=== PATIENT | female | born 1965 | race Caucasian/White ===

== ENCOUNTER 2021-05-30 12:05 | Emergency (ER) | payer SELFPAY ==
[~2021-05-30] VITALS: Ht 160 cm; Wt 61.2 kg
[2021-05-30 12:05] VITALS: BP_SYST 139
--- NOTE | 2021-05-30 12:05 | NUR ---
BROUGHT BACK TO TRIAGE TENT AND TRIAGED. AWAITING ER BED AVAILABILITY
--- NOTE | 2021-05-30 12:11 | NUR ---
PT STATES THAT SHE HAS HAS RIGHT RIB/CHEST PAIN FOR OVER ONE MONTH, SHE HAS HAD FLU/COLD SYMPTOMS FOR LAST 2 WEEKS WHICH HAS MADE THE RIB PAIN WORSE DUE TO COUGHING. PT STATES SHE IS NOT VACCINATED FOR COVID AND DOES NOT WANT IT. PT STATES SHE HAS NOT BEEN TESTED FOR COVID EITHER.
--- NOTE | 2021-05-30 12:40 | NUR ---
Dr Clark evaluating patient in the tent
[2021-05-30] MEDS ORDERED: KETOROLAC TROMETHAMINE 30 MG VIAL IM ONE (14:30)
--- NOTE | 2021-05-30 15:10 | NUR ---
Pt A&Ox4, VSS, respirations even and unlabored
[2021-05-30 15:12] LABS: HEMATOCRIT 27.8 % (36-48); HEMOGLOBIN 9.6 g/dL (12.0-16.0); LYMPHOCYTES # (AUTO) 0.8 K/uL (1.0-5.5); LYMPHOCYTES % (AUTO) 18.9 % (20.5-51.5); MEAN CORPUSCULAR HEMOGLOBIN 31 pg (27-31); MEAN CORPUSCULAR HGB CONC 34 % (32-36); MEAN CORPUSCULAR VOLUME 91 fL (79.0-98.0); MONOCYTES # (AUTO) 0.6 K/uL (0.0-1.0); MONOCYTES % (AUTO) 13.9 % (1.7-9.3); NEUTROPHILS # (AUTO) 2.6 K/uL (1.8-7.7); NEUTROPHILS % (AUTO) 65.2 % (40.0-70.0); PLATELET COUNT (AUTO) 176 K/uL (130-430); RED BLOOD CELL COUNT(AUTO) 3.08 MIL/uL (4.2-6.2); RED CELL DISTRIBUTION WIDTH 15.3 % (9.0-15.0)
[2021-05-30 15:59] LABS: CALCIUM 11.2 mg/dL (8.4-11.0); CREATININE 1.09 mg/dL (0.55-1.30); POTASSIUM 3.9 mmol/L (3.5-5.1)
[2021-05-30 16:05] LABS: ALBUMIN 2.8 g/dL (3.4-4.8); TOTAL BILIRUBIN 0.1 mg/dL (0.0-1.0)
[2021-05-30] MEDS ORDERED: ACET325T53 PO (16:25)
[2021-05-30] MEDS ORDERED: GUAI100S14 PO (16:25)
[2021-05-30 17:46] VITALS: BP_SYST 139
--- NOTE | 2021-05-30 17:47 | NUR ---
Patient given written and verbal discharge instructions and verbalizes understanding. ER MD discussed with patient the results and treatment provided. Patient in stable condition. ID arm band removed. Rx of Robitussin and Acetaminophen given. Patient educated on pain management and to follow up with PMD. Pain Scale 2/10. Opportunity for questions provided and answered. Medication side effect fact sheet provided.
== END 2021-05-30 17:47 | disposition home or self-care (01) ==
LOC: SED 12:05
DX: R07.89 Other chest pain (principal); R05.9 Cough, unspecified; Z20.822 Contact with and (suspected) exposure to COVID-19
CPT/HCPCS: 36415; 71045; 80053; 83735; 84484; 85025; 93005; 96372; 99285; J1885

== ENCOUNTER 2021-08-04 15:39 | Inpatient (IN) | payer MEDICAID, SELFPAY ==
[~2021-08-04] VITALS: Ht 160 cm; Wt 55.3 kg
[~2021-08-04 15:39] MED LIST: ACET325T53 PO; GUAI100S14 PO
[2021-08-04 15:46] VITALS: BP_SYST 166
[2021-08-04] MEDS ORDERED: NACL 0.9% 1,000 ML IV ONE (16:15)
[2021-08-04] MEDS ORDERED: KETOROLAC TROMETHAMINE 30 MG VIAL IVP ONE (16:15)
[2021-08-04 16:32] LABS: BILIRUBIN,URINE NEGATIVE (NEGATIVE); BLOOD, URINE 1+ (NEGATIVE); CLARITY/URINE CLEAR (CLEAR); COLOR,URINE YELLOW (YELLOW); GLUCOSE,URINE NEGATIVE (NEGATIVE); KETONES,URINE NEGATIVE (NEGATIVE); LEUKOCYTE ESTERASE ,URINE NEGATIVE (NEGATIVE); NITRITE, URINE NEGATIVE (NEGATIVE); PROTEIN URINE 2+ (NEGATIVE); UROBILINOGEN,URINE 0.2 (0.2-1.0)
[2021-08-04 16:56] LABS: WBC,URINE 0-3 /HPF (0-3)
[2021-08-04 16:57] LABS: BACTERIA,URINE RARE /HPF (None Seen); FINE GRANULAR CASTS,URINE 0-10 /LPF (None Seen)
[2021-08-04 16:59] LABS: BASOPHILS % (AUTO) 0.6 % (0.0-2.0); EOSINOPHILS # (AUTO) 0.1 K/uL (0.0-0.4); EOSINOPHILS % (AUTO) 1.8 % (0.0-4.0); LYMPHOCYTES # (AUTO) 1.6 K/uL (1.0-5.5); LYMPHOCYTES % (AUTO) 28.9 % (20.5-51.5); MEAN CORPUSCULAR HEMOGLOBIN 30 pg (27-31); MEAN CORPUSCULAR HGB CONC 34 % (32-36); MEAN CORPUSCULAR VOLUME 89 fL (79.0-98.0); MONOCYTES # (AUTO) 0.6 K/uL (0.0-1.0); MONOCYTES % (AUTO) 10.6 % (1.7-9.3); NEUTROPHILS # (AUTO) 3.1 K/uL (1.8-7.7); NEUTROPHILS % (AUTO) 58.1 % (40.0-70.0); PLATELET COUNT (AUTO) 200 K/uL (130-430); RED BLOOD CELL COUNT(AUTO) 2.03 MIL/uL (4.2-6.2); RED CELL DISTRIBUTION WIDTH 15.3 % (9.0-15.0); WHITE BLOOD COUNT (AUTO) 5.4 K/uL (4.8-10.8)
[2021-08-04 17:04] LABS: HEMOGLOBIN 6.2 g/dL (12.0-16.0)
[2021-08-04 17:06] LABS: CREATININE 5.6 mg/dL (0.55-1.30); POTASSIUM 3.9 mmol/L (3.5-5.1)
[2021-08-04 17:11] LABS: CALCIUM 12.9 mg/dL (8.4-11.0)
[2021-08-04 17:12] LABS: ALBUMIN 2.6 g/dL (3.4-4.8); TOTAL BILIRUBIN 0.1 mg/dL (0.0-1.0)
[2021-08-04] MEDS ORDERED: ACETAMINOPHEN 325 MG TABLET PO PRN (18:15)
[2021-08-04] MEDS ORDERED: DOCUSATE SODIUM 100 MG CAPSULE PO PRN (18:15)
[2021-08-04] MEDS ORDERED: LORazepam 2 MG/ML VIAL IVP ONE (18:15)
[2021-08-04] MEDS ORDERED: HYDROcodone/ACETAMIN 5-325 MG TAB (NORCO/ VICODIN) PO PRN (18:15)
[2021-08-04] MEDS ORDERED: LORazepam 2 MG/ML VIAL ONE (18:19)
[2021-08-04 18:20] LABS: INR 1.1 (0.8-1.2); PROTHROMBIN TIME 10.8 SECS (9.5-12.5)
[2021-08-04] MEDS: NACL 0.9% 1,000 ML IV SCH (18:57)
[2021-08-04 19:22] LABS: BARBITURATE, URINE NEGATIVE (NEG <=200); BENZODIAZEPINE, URINE NEGATIVE (NEG <=150); CANNABINOID, URINE NEGATIVE (NEG <=50); COCAINE, URINE NEGATIVE (NEG <=150); METHAMPHETAMINES SCREEN,URINE NEGATIVE (NEG <=500); OPIATE, URINE NEGATIVE (NEG <=100); PHENCYCLIDINE SCREEN,URINE NEGATIVE (NEG <=25); UR TRICYCLIC ANTIDEPRESSANTS NEGATIVE (NEG <=300); URINE AMPHETAMINE NEGATIVE (NEG <=500); URINE METHADONE NEGATIVE (NEG <=200); URINE OXYCODONE SCREEN NEGATIVE (NEG <=100); URINE PROPOXYPHENE SCREEN NEGATIVE (NEG <=300)
[2021-08-04] MEDS: MORPHINE 2 MG/ML INJ. SYRINGE IVP ONE (19:30)
[2021-08-04] MEDS ORDERED: PAMIDRONATE DISODIUM 60 MG in NS 250 ML IV ONE (20:00)
[2021-08-04] MEDS: CALCITONIN SALMON,SYNTHETIC 200 UNITS/ML VIAL SUBCUT SCH (21:00)
[2021-08-04 23:42] VITALS: BP_SYST 141
[2021-08-05] MEDS: MORPHINE 2 MG/ML INJ. SYRINGE IVP ONE (00:49)
[2021-08-05] MEDS: ONDANSETRON HCL 4 MG/2 ML VIAL IVP PRN (00:52)
[2021-08-05 02:23] VITALS: BP_SYST 123
[2021-08-05] MEDS: NACL 0.9% 1,000 ML IV SCH ×3 (06:10→17:47)
[2021-08-05 08:06] VITALS: BP_SYST 125
[2021-08-05] MEDS: CALCITONIN SALMON,SYNTHETIC 200 UNITS/ML VIAL SUBCUT SCH ×3 (09:41→21:00)
[2021-08-05 09:59] LABS: BASOPHILS % (AUTO) 0.7 % (0.0-2.0); EOSINOPHILS # (AUTO) 0.1 K/uL (0.0-0.4); EOSINOPHILS % (AUTO) 1.7 % (0.0-4.0); HEMATOCRIT 22.8 % (36-48); HEMOGLOBIN 7.8 g/dL (12.0-16.0); LYMPHOCYTES # (AUTO) 1.2 K/uL (1.0-5.5); LYMPHOCYTES % (AUTO) 27.4 % (20.5-51.5); MEAN CORPUSCULAR HEMOGLOBIN 31 pg (27-31); MEAN CORPUSCULAR HGB CONC 34 % (32-36); MEAN CORPUSCULAR VOLUME 90 fL (79.0-98.0); MONOCYTES # (AUTO) 0.5 K/uL (0.0-1.0); MONOCYTES % (AUTO) 10.8 % (1.7-9.3); NEUTROPHILS # (AUTO) 2.7 K/uL (1.8-7.7); NEUTROPHILS % (AUTO) 59.4 % (40.0-70.0); PLATELET COUNT (AUTO) 155 K/uL (130-430); RED BLOOD CELL COUNT(AUTO) 2.54 MIL/uL (4.2-6.2); RED CELL DISTRIBUTION WIDTH 15.2 % (9.0-15.0); WHITE BLOOD COUNT (AUTO) 4.5 K/uL (4.8-10.8)
[2021-08-05 10:07] LABS: ALBUMIN 2.2 g/dL (3.4-4.8); CALCIUM 12.2 mg/dL (8.4-11.0); CREATININE 5.27 mg/dL (0.55-1.30); PHOSPHORUS 5.4 mg/dL (2.7-4.5); THYROID STIMULATING HORMONE 7.57 uIu/mL (0.36-3.74); TOTAL BILIRUBIN 0.5 mg/dL (0.0-1.0)
[2021-08-05 12:00] VITALS: BP_SYST 122
[2021-08-05] MEDS: DEXAMETHASONE SOD PHOSPHATE 10 MG/ML VIAL IV SCH ×2 (12:18→17:43)
[2021-08-05] MEDS ORDERED: PAMIDRONATE DISODIUM 60 MG in NS 250 ML IV ONE (13:00)
[2021-08-05 14:07] LABS: TOTAL IRON BIND. CAPACITY 217 ug/dL (250-450)
[2021-08-05 16:00] VITALS: BP_SYST 132
[2021-08-05 20:18] VITALS: BP_SYST 123
[2021-08-05] MEDS: MORPHINE 2 MG/ML INJ. SYRINGE IVP PRN (22:28)
[2021-08-06] VITALS (7 sets, daily range): BP systolic 116–141
[2021-08-06] MEDS: DEXAMETHASONE SOD PHOSPHATE 10 MG/ML VIAL IV SCH ×4 (02:57→18:18)
[2021-08-06 07:06] LABS: FOLATE (FOLIC ACID) 5.8 ng/mL (>3.0)
[2021-08-06 08:08] LABS: BASOPHILS % (AUTO) 0.3 % (0.0-2.0); EOSINOPHILS % (AUTO) 0.1 % (0.0-4.0); HEMOGLOBIN 7.1 g/dL (12.0-16.0); LYMPHOCYTES # (AUTO) 0.8 K/uL (1.0-5.5); LYMPHOCYTES % (AUTO) 12.2 % (20.5-51.5); MEAN CORPUSCULAR HEMOGLOBIN 31 pg (27-31); MEAN CORPUSCULAR HGB CONC 34 % (32-36); MEAN CORPUSCULAR VOLUME 90 fL (79.0-98.0); MONOCYTES # (AUTO) 0.3 K/uL (0.0-1.0); MONOCYTES % (AUTO) 5.3 % (1.7-9.3); NEUTROPHILS # (AUTO) 5.3 K/uL (1.8-7.7); NEUTROPHILS % (AUTO) 82.1 % (40.0-70.0); PLATELET COUNT (AUTO) 156 K/uL (130-430); RED BLOOD CELL COUNT(AUTO) 2.33 MIL/uL (4.2-6.2); RED CELL DISTRIBUTION WIDTH 15.6 % (9.0-15.0); WHITE BLOOD COUNT (AUTO) 6.4 K/uL (4.8-10.8)
[2021-08-06 08:38] LABS: ALBUMIN 2.1 g/dL (3.4-4.8); CALCIUM 10.3 mg/dL (8.4-11.0); CREATININE 4.92 mg/dL (0.55-1.30); POTASSIUM 4.5 mmol/L (3.5-5.1); TOTAL BILIRUBIN 0.2 mg/dL (0.0-1.0)
[2021-08-06 09:16] LABS: HEMATOCRIT 20.9 % (36-48)
[2021-08-06] MEDS: MORPHINE 2 MG/ML INJ. SYRINGE IVP PRN ×3 (09:56→18:24)
[2021-08-06] MEDS: CALCITONIN SALMON,SYNTHETIC 200 UNITS/ML VIAL SUBCUT SCH ×2 (09:56→20:53)
[2021-08-06] MEDS ORDERED: DOCUSATE SODIUM 250 MG CAPSULE PO ONE (10:00)
[2021-08-06] MEDS ORDERED: traMADol HCL HCL 50 MG TABLET (ULTRAM) PO ONE (10:00)
[2021-08-06 15:07] LABS: ALBUMIN 3.1 g/dL (2.9-4.4); ALPHA-1-GLOBULIN 0.3 g/dL (0.0-0.4)
[2021-08-06] MEDS: NACL 0.9% 1,000 ML IV SCH ×2 (18:24→20:49)
[2021-08-06] MEDS: traMADol HCL HCL 50 MG TABLET (ULTRAM) PO SCH (20:52)
[2021-08-06] MEDS: DOCUSATE SODIUM 250 MG CAPSULE PO SCH (20:52)
[2021-08-07] VITALS: BP_SYST 124
[2021-08-07 00:30] LABS: TPROTEIN U,24HR 2931.3 mg/24HR (0-130)
[2021-08-07] MEDS: DEXAMETHASONE SOD PHOSPHATE 10 MG/ML VIAL IV SCH ×4 (00:52→18:51)
[2021-08-07] MEDS: NACL 0.9% 1,000 ML IV SCH ×2 (05:32→15:53)
[2021-08-07] MEDS: MORPHINE 2 MG/ML INJ. SYRINGE IVP PRN ×3 (05:33→15:52)
[2021-08-07 08:00] VITALS: BP_SYST 128
[2021-08-07] MEDS: DOCUSATE SODIUM 250 MG CAPSULE PO SCH ×2 (09:21→21:27)
[2021-08-07] MEDS: ONDANSETRON HCL 4 MG/2 ML VIAL IVP PRN ×2 (09:21→15:05)
[2021-08-07] MEDS: traMADol HCL HCL 50 MG TABLET (ULTRAM) PO SCH ×2 (09:23→21:27)
[2021-08-07] MEDS: CALCITONIN SALMON,SYNTHETIC 200 UNITS/ML VIAL SUBCUT SCH ×2 (09:24→21:26)
[2021-08-07 09:36] LABS: RED BLOOD CELL COUNT(AUTO) 2.43 MIL/uL (4.2-6.2)
[2021-08-07 09:45] LABS: BASOPHILS % (AUTO) 0.3 % (0.0-2.0); HEMOGLOBIN 7.4 g/dL (12.0-16.0); LYMPHOCYTES # (AUTO) 0.6 K/uL (1.0-5.5); LYMPHOCYTES % (AUTO) 7.5 % (20.5-51.5); MEAN CORPUSCULAR HEMOGLOBIN 31 pg (27-31); MEAN CORPUSCULAR HGB CONC 34 % (32-36); MEAN CORPUSCULAR VOLUME 90 fL (79.0-98.0); MONOCYTES # (AUTO) 0.3 K/uL (0.0-1.0); MONOCYTES % (AUTO) 3.6 % (1.7-9.3); NEUTROPHILS % (AUTO) 88.6 % (40.0-70.0); PLATELET COUNT (AUTO) 154 K/uL (130-430); RED CELL DISTRIBUTION WIDTH 15.5 % (9.0-15.0); WHITE BLOOD COUNT (AUTO) 7.9 K/uL (4.8-10.8)
[2021-08-07 09:49] LABS: CREATININE 4.8 mg/dL (0.55-1.30); POTASSIUM 4.6 mmol/L (3.5-5.1)
[2021-08-07 12:00] VITALS: BP_SYST 129
[2021-08-07 16:00] VITALS: BP_SYST 131
[2021-08-07] MEDS ORDERED: PANTOPRAZOLE SODIUM 40 MG TAB PO ONE (18:00)
[2021-08-08] VITALS: BP_SYST 111
[2021-08-08] MEDS: DEXAMETHASONE SOD PHOSPHATE 10 MG/ML VIAL IV SCH ×5 (00:25→23:46)
[2021-08-08] MEDS: NACL 0.9% 1,000 ML IV SCH ×3 (02:50→23:45)
[2021-08-08 05:50] LABS: BASOPHILS % (AUTO) 0.1 % (0.0-2.0); HEMOGLOBIN 7.1 g/dL (12.0-16.0); LYMPHOCYTES # (AUTO) 0.6 K/uL (1.0-5.5); LYMPHOCYTES % (AUTO) 8.4 % (20.5-51.5); MEAN CORPUSCULAR HEMOGLOBIN 31 pg (27-31); MEAN CORPUSCULAR HGB CONC 34 % (32-36); MEAN CORPUSCULAR VOLUME 92 fL (79.0-98.0); MONOCYTES # (AUTO) 0.2 K/uL (0.0-1.0); MONOCYTES % (AUTO) 3.4 % (1.7-9.3); NEUTROPHILS % (AUTO) 88.1 % (40.0-70.0); PLATELET COUNT (AUTO) 153 K/uL (130-430); RED CELL DISTRIBUTION WIDTH 15.9 % (9.0-15.0); WHITE BLOOD COUNT (AUTO) 6.8 K/uL (4.8-10.8)
[2021-08-08 06:29] LABS: HEMATOCRIT 21.1 % (36-48)
[2021-08-08 07:03] LABS: CALCIUM 8.4 mg/dL (8.4-11.0); CREATININE 4.26 mg/dL (0.55-1.30); POTASSIUM 4.7 mmol/L (3.5-5.1)
[2021-08-08 08:00] VITALS: BP_SYST 132
[2021-08-08] MEDS: traMADol HCL HCL 50 MG TABLET (ULTRAM) PO SCH ×2 (08:28→20:56)
[2021-08-08] MEDS: PANTOPRAZOLE SODIUM 40 MG TAB PO SCH (08:28)
[2021-08-08] MEDS: DOCUSATE SODIUM 250 MG CAPSULE PO SCH ×2 (08:28→20:55)
[2021-08-08] MEDS: CALCITONIN SALMON,SYNTHETIC 200 UNITS/ML VIAL SUBCUT SCH (08:29)
[2021-08-08 09:33] LABS: TOTAL BILIRUBIN 0.1 mg/dL (0.0-1.0)
[2021-08-08 12:27] VITALS: BP_SYST 123
[2021-08-08 16:24] VITALS: BP_SYST 130
[2021-08-08] MEDS: CALCIUM CARBONATE/VITAMIN D3 1 TAB TABLET PO SCH (20:55)
[2021-08-08] MEDS ORDERED: CALCIUM 600/VIT D PO SCH (21:00)
[2021-08-09] VITALS: BP_SYST 129
[2021-08-09] MEDS: DEXAMETHASONE SOD PHOSPHATE 10 MG/ML VIAL IV SCH (05:39)
[2021-08-09 08:00] VITALS: BP_SYST 140
[2021-08-09] MEDS: traMADol HCL HCL 50 MG TABLET (ULTRAM) PO SCH (08:19)
[2021-08-09] MEDS: DOCUSATE SODIUM 250 MG CAPSULE PO SCH (08:19)
[2021-08-09] MEDS: PANTOPRAZOLE SODIUM 40 MG TAB PO SCH (08:19)
[2021-08-09] MEDS: NACL 0.9% 1,000 ML IV SCH (08:20)
[2021-08-09] MEDS: CALCIUM CARBONATE/VITAMIN D3 1 TAB TABLET PO SCH (08:20)
[2021-08-09] MEDS ORDERED: TRAM50TA2 PO (09:10)
[2021-08-09 09:30] LABS: BASOPHILS # (AUTO) 0.1 K/uL (0.0-0.2); BASOPHILS % (AUTO) 1.6 % (0.0-2.0); EOSINOPHILS % (AUTO) 0.2 % (0.0-4.0); HEMOGLOBIN 7.3 g/dL (12.0-16.0); LYMPHOCYTES # (AUTO) 0.3 K/uL (1.0-5.5); MEAN CORPUSCULAR HEMOGLOBIN 31 pg (27-31); MEAN CORPUSCULAR HGB CONC 34 % (32-36); MEAN CORPUSCULAR VOLUME 90 fL (79.0-98.0); MONOCYTES # (AUTO) 0.3 K/uL (0.0-1.0); MONOCYTES % (AUTO) 5.5 % (1.7-9.3); NEUTROPHILS % (AUTO) 86.7 % (40.0-70.0); PLATELET COUNT (AUTO) 149 K/uL (130-430); RED BLOOD CELL COUNT(AUTO) 2.39 MIL/uL (4.2-6.2); RED CELL DISTRIBUTION WIDTH 15.5 % (9.0-15.0); WHITE BLOOD COUNT (AUTO) 5.8 K/uL (4.8-10.8)
[2021-08-09 09:35] LABS: HEMATOCRIT 21.6 % (36-48)
[2021-08-09 09:41] LABS: ALBUMIN 2.1 g/dL (3.4-4.8); CALCIUM 7.7 mg/dL (8.4-11.0); CREATININE 3.68 mg/dL (0.55-1.30); POTASSIUM 4.4 mmol/L (3.5-5.1); TOTAL BILIRUBIN 0.1 mg/dL (0.0-1.0)
[2021-08-09 11:12] VITALS: BP_SYST 140
[2021-08-09 12:00] VITALS: BP_SYST 132
[2021-08-09 16:00] VITALS: BP_SYST 135
== END 2021-08-09 17:55 | disposition home or self-care (01) | DRG 691 ==
LOC: SED 15:39 → STU 18:08 → SMU 08-07 13:21
PROVIDERS: ADMIT Family Medicine; ATTEND Family Medicine
PROC: 30233N1 Transfusion of Nonautologous Red Blood Cells into Peripheral Vein, Percutaneous Approach (ICD-10-PCS; principal; 2021-08-04)
DX: C90.00 Multiple myeloma not having achieved remission (principal); N17.0 Acute kidney failure with tubular necrosis; E43 Unspecified severe protein-calorie malnutrition; E87.1 Hypo-osmolality and hyponatremia; E83.39 Other disorders of phosphorus metabolism; E11.65 Type 2 diabetes mellitus with hyperglycemia; D64.9 Anemia, unspecified; Z20.822 Contact with and (suspected) exposure to COVID-19; E78.5 Hyperlipidemia, unspecified; E83.52 Hypercalcemia; Z98.891 History of uterine scar from previous surgery; Z68.21 Body mass index [BMI] 21.0-21.9, adult
CPT/HCPCS: 36415; 36430; 71045; 72131; 72146; 72148; 76376; 80048; 80053; 80061; 80307; 81000; 82150; 82306; 82607; 82728; 82746; 82784; 83036; 83540; 83550; 83690; 83735; 83880; 84100; 84155; 84156; 84165; 84439; 84443; 85025; 85044; 85610-TC; 85730-TC; 86335; 86886; 86900; 86901; 86920; 93005; 96361; 96374; 96375; 97116-GP; 97163-GP; 97530-GP; 99291; G0378; J0630; J1100; J1885; J2060; J2270; J2405; J2430; J7050; P9021

== ENCOUNTER 2021-09-23 11:13 | Inpatient (IN) | payer MEDICAID ==
[~2021-09-23] VITALS: Ht 160 cm; Wt 46.3 kg
[~2021-09-23 11:13] MED LIST changes: -ACET325T53 PO; -GUAI100S14 PO; +TRAM50TA2 PO
[2021-09-23 11:43] VITALS: BP_SYST 112
[2021-09-23 12:14] LABS: BASOPHILS # (AUTO) 0.1 K/uL (0.0-0.2); BASOPHILS % (AUTO) 0.9 % (0.0-2.0); EOSINOPHILS # (AUTO) 0.1 K/uL (0.0-0.4); EOSINOPHILS % (AUTO) 1.8 % (0.0-4.0); HEMOGLOBIN 7.2 g/dL (12.0-16.0); LYMPHOCYTES # (AUTO) 1.7 K/uL (1.0-5.5); LYMPHOCYTES % (AUTO) 20.5 % (20.5-51.5); MEAN CORPUSCULAR HEMOGLOBIN 31 pg (27-31); MEAN CORPUSCULAR HGB CONC 34 % (32-36); MEAN CORPUSCULAR VOLUME 90 fL (79.0-98.0); MONOCYTES # (AUTO) 0.5 K/uL (0.0-1.0); MONOCYTES % (AUTO) 5.8 % (1.7-9.3); NEUTROPHILS # (AUTO) 5.9 K/uL (1.8-7.7); PLATELET COUNT (AUTO) 281 K/uL (130-430); RED BLOOD CELL COUNT(AUTO) 2.35 MIL/uL (4.2-6.2); RED CELL DISTRIBUTION WIDTH 14.6 % (9.0-15.0); WHITE BLOOD COUNT (AUTO) 8.3 K/uL (4.8-10.8)
[2021-09-23 12:18] LABS: HEMATOCRIT 21.2 % (36-48)
[2021-09-23] MEDS ORDERED: ONDA-8 TL (12:19)
[2021-09-23] MEDS ORDERED: TRAM50TA2 PO (12:19)
[2021-09-23 12:30] LABS: ANION GAP 9 (5-15); CHLORIDE 90 mmol/L (98-107); GLUCOSE 124 mg/dL (70-99); POTASSIUM 3.8 mmol/L (3.5-5.1); SODIUM SERUM 124 mmol/L (136-145); UREA NITROGEN, BLOOD 59 mg/dL (8-21)
[2021-09-23 12:35] LABS: INR 1.2 (0.8-1.2); PROTHROMBIN TIME 11.6 SECS (9.5-12.5)
[2021-09-23 12:45] LABS: ALANINE AMINOTRANSFERASE 10 U/L (12-78); ALBUMIN 2.1 g/dL (3.4-4.8); AMYLASE 193 U/L (0-100); ASPARTATE AMINOTRANSFERASE 15 U/L (10-37); LACTATE DEHYDROGENASE 165 U/L (81-234); LIPASE 513 U/L (73-393); TOTAL BILIRUBIN 0.2 mg/dL (0.0-1.0)
[2021-09-23 12:51] LABS: CALCIUM 16.3 mg/dL (8.4-11.0); GFR AFRICAN AMERICAN 9 mL/min (>90)
[2021-09-23 13:06] LABS: C-REACTIVE PROTEIN QUANT 10.3 mg/dL (0-0.5)
[2021-09-23] MEDS ORDERED: NACL 0.9% 2,000 ML IV ONE (13:15)
[2021-09-23] MEDS ORDERED: MORPHINE 2 MG/ML INJ. SYRINGE IVP ONE (14:00)
[2021-09-23 14:03] LABS: BILIRUBIN,URINE NEGATIVE (NEGATIVE); BLOOD, URINE 1+ (NEGATIVE); CLARITY/URINE SL CLOUDY (CLEAR); COLOR,URINE YELLOW (YELLOW); GLUCOSE,URINE NEGATIVE (NEGATIVE); KETONES,URINE NEGATIVE (NEGATIVE); LEUKOCYTE ESTERASE ,URINE 1+ (NEGATIVE); NITRITE, URINE NEGATIVE (NEGATIVE); PROTEIN URINE 2+ (NEGATIVE); UROBILINOGEN,URINE 0.2 (0.2-1.0)
[2021-09-23] MEDS ORDERED: MAGNESIUM SULFATE 50 ML IV PRN (14:15)
[2021-09-23] MEDS ORDERED: MUPIROCIN 2% TOPICAL OINTMENT 22 GM NS PRN (14:15)
[2021-09-23] MEDS ORDERED: DOCUSATE SODIUM 100 MG CAPSULE PO PRN (14:15)
[2021-09-23] MEDS ORDERED: NALOXONE HCL 0.4 MG/ML AMP (NARCAN) IVP PRN ×2 (14:15)
[2021-09-23] MEDS ORDERED: ACETAMINOPHEN 325 MG TABLET PO PRN ×2 (14:15→14:30)
[2021-09-23] MEDS ORDERED: LORazepam 2 MG/ML VIAL IVP PRN (14:15)
[2021-09-23] MEDS ORDERED: ZOLPIDEM TARTRATE 5 MG TABLET PO PRN (14:15)
[2021-09-23] MEDS ORDERED: POTASSIUM CHLORIDE 20 MEQ TAB.PRT.SR PO PRN (14:15)
[2021-09-23] MEDS ORDERED: ONDANSETRON HCL 4 MG/2 ML VIAL IVP PRN (14:15)
[2021-09-23 14:16] LABS: BACTERIA,URINE MODERATE /HPF (None Seen); MUCUS,URINE 1+ /LPF (None Seen); WBC,URINE 20-50 /HPF (0-3)
[2021-09-23 14:18] LABS: CALCIUM OXALATE CRYSTALS,UR 0-10 /HPF (None Seen)
[2021-09-23] MEDS ORDERED: PAMIDRONATE DISODIUM 30 MG in NS 500 ML IV ONE (14:45)
[2021-09-23] MEDS ORDERED: CALCITONIN SALMON,SYNTHETIC 200 UNITS/ML VIAL SUBCUT ONE (15:00)
[2021-09-23] MEDS ORDERED: DEXAMETHASONE SOD PHOSPHATE 10 MG/ML VIAL IVP ONE (15:00)
[2021-09-23] MEDS: NACL 0.9% 1,000 ML IV SCH ×2 (15:06→23:30)
[2021-09-23 16:50] VITALS: BP_SYST 139
[2021-09-23 16:59] LABS: TOTAL IRON BIND. CAPACITY 216 ug/dL (250-450)
[2021-09-23 17:17] VITALS: BP_SYST 139
[2021-09-23] MEDS: DEXAMETHASONE SOD PHOSPHATE 10 MG/ML VIAL IVP SCH (18:12)
[2021-09-23] MEDS: MORPHINE 2 MG/ML INJ. SYRINGE IVP PRN (19:00)
[2021-09-23 20:00] VITALS: BP_SYST 126
[2021-09-24] MEDS: DEXAMETHASONE SOD PHOSPHATE 10 MG/ML VIAL IVP SCH ×4 (00:06→17:04)
[2021-09-24] MEDS: CALCITONIN SALMON,SYNTHETIC 200 UNITS/ML VIAL SUBCUT SCH ×3 (00:07→22:18)
[2021-09-24] MEDS: MORPHINE 2 MG/ML INJ. SYRINGE IVP PRN ×5 (00:22→22:16)
[2021-09-24 00:50] VITALS: BP_SYST 116
[2021-09-24] MEDS: NACL 0.9% 1,000 ML IV SCH (01:26)
[2021-09-24 06:15] LABS: BASOPHILS % (AUTO) 0.2 % (0.0-2.0); EOSINOPHILS % (AUTO) 0.4 % (0.0-4.0); LYMPHOCYTES # (AUTO) 0.7 K/uL (1.0-5.5); LYMPHOCYTES % (AUTO) 11.1 % (20.5-51.5); MEAN CORPUSCULAR HEMOGLOBIN 31 pg (27-31); MEAN CORPUSCULAR HGB CONC 34 % (32-36); MEAN CORPUSCULAR VOLUME 91 fL (79.0-98.0); MONOCYTES # (AUTO) 0.2 K/uL (0.0-1.0); NEUTROPHILS # (AUTO) 5.2 K/uL (1.8-7.7); NEUTROPHILS % (AUTO) 85.3 % (40.0-70.0); PLATELET COUNT (AUTO) 170 K/uL (130-430); RED CELL DISTRIBUTION WIDTH 14.5 % (9.0-15.0); WHITE BLOOD COUNT (AUTO) 6.1 K/uL (4.8-10.8)
[2021-09-24 06:29] LABS: RED BLOOD CELL COUNT(AUTO) 1.81 MIL/uL (4.2-6.2)
[2021-09-24 06:30] LABS: HEMOGLOBIN 5.6 g/dL (12.0-16.0)
[2021-09-24 06:31] LABS: HEMATOCRIT 16.4 % (36-48)
[2021-09-24 06:36] LABS: CALCIUM 12.1 mg/dL (8.4-11.0); CREATININE 5.49 mg/dL (0.55-1.30)
[2021-09-24 08:00] VITALS: BP_SYST 106
[2021-09-24] MEDS: cefTRIAXone 1 GM in D5W 50 ML IV SCH (11:03)
[2021-09-24 11:35] VITALS: BP_SYST 113
[2021-09-24 12:02] LABS: TOTAL IRON BIND. CAPACITY 170 ug/dL (250-450)
[2021-09-24 13:55] VITALS: BP_SYST 100
[2021-09-24 16:00] VITALS: BP_SYST 112
[2021-09-24 20:00] VITALS: BP_SYST 110
[2021-09-25] VITALS (8 sets, daily range): BP systolic 115–198
[2021-09-25] MEDS: MORPHINE 2 MG/ML INJ. SYRINGE IVP PRN ×4 (03:11→17:32)
[2021-09-25] MEDS: DEXAMETHASONE SOD PHOSPHATE 10 MG/ML VIAL IVP SCH ×4 (03:16→17:31)
[2021-09-25] MEDS: NACL 0.9% 1,000 ML IV SCH ×2 (05:30→15:30)
[2021-09-25 07:06] LABS: FOLATE (FOLIC ACID) 7.4 ng/mL (>3.0)
[2021-09-25 07:58] LABS: CALCIUM 10.6 mg/dL (8.4-11.0); POTASSIUM 3.6 mmol/L (3.5-5.1)
[2021-09-25 08:15] LABS: BASOPHILS % (AUTO) 0.1 % (0.0-2.0); EOSINOPHILS % (AUTO) 0.1 % (0.0-4.0); HEMOGLOBIN 8.9 g/dL (12.0-16.0); LYMPHOCYTES # (AUTO) 0.6 K/uL (1.0-5.5); LYMPHOCYTES % (AUTO) 7.4 % (20.5-51.5); MEAN CORPUSCULAR HEMOGLOBIN 32 pg (27-31); MEAN CORPUSCULAR HGB CONC 34 % (32-36); MEAN CORPUSCULAR VOLUME 92 fL (79.0-98.0); MONOCYTES # (AUTO) 0.4 K/uL (0.0-1.0); MONOCYTES % (AUTO) 5.5 % (1.7-9.3); NEUTROPHILS # (AUTO) 6.8 K/uL (1.8-7.7); NEUTROPHILS % (AUTO) 86.9 % (40.0-70.0); PLATELET COUNT (AUTO) 166 K/uL (130-430); RED BLOOD CELL COUNT(AUTO) 2.84 MIL/uL (4.2-6.2)
[2021-09-25 08:34] LABS: WHITE BLOOD COUNT (AUTO) 7.8 K/uL (4.8-10.8)
[2021-09-25] MEDS: cefTRIAXone 1 GM in D5W 50 ML IV SCH (08:46)
[2021-09-25] MEDS: CALCITONIN SALMON,SYNTHETIC 200 UNITS/ML VIAL SUBCUT SCH (08:49)
[2021-09-25] MEDS ORDERED: traMADol HCL HCL 50 MG TABLET (ULTRAM) PO ONE (09:15)
[2021-09-25] MEDS ORDERED: PANTOPRAZOLE SODIUM 40 MG TAB PO ONE (09:15)
[2021-09-25] MEDS: traMADol HCL HCL 50 MG TABLET (ULTRAM) PO SCH (20:47)
[2021-09-26] MEDS: DEXAMETHASONE SOD PHOSPHATE 10 MG/ML VIAL IVP SCH ×5 (00:31→23:12)
[2021-09-26 00:45] VITALS: BP_SYST 116
[2021-09-26] MEDS: NACL 0.9% 1,000 ML IV SCH ×3 (01:30→21:32)
[2021-09-26 06:24] LABS: HEMOGLOBIN 9.2 g/dL (12.0-16.0); MEAN CORPUSCULAR HEMOGLOBIN 32 pg (27-31); MEAN CORPUSCULAR HGB CONC 34 % (32-36); MEAN CORPUSCULAR VOLUME 92 fL (79.0-98.0); PLATELET COUNT (AUTO) 166 K/uL (130-430); RED BLOOD CELL COUNT(AUTO) 2.93 MIL/uL (4.2-6.2); RED CELL DISTRIBUTION WIDTH 16.3 % (9.0-15.0); WHITE BLOOD COUNT (AUTO) 6.7 K/uL (4.8-10.8)
[2021-09-26 06:48] LABS: CALCIUM 9.4 mg/dL (8.4-11.0); CREATININE 4.45 mg/dL (0.55-1.30); POTASSIUM 3.7 mmol/L (3.5-5.1)
[2021-09-26 08:00] VITALS: BP_SYST 145
[2021-09-26] MEDS ORDERED: TRAM50TA2 PO (08:12)
[2021-09-26 08:54] LABS: BAND % (MANUAL) 2 % (0-6); BASOPHILS % (MANUAL) 0 % (0-2); EOSINOPHILS % (MANUAL) 1 % (0-7); LYMPHOCYTES % (MANUAL) 9 % (20-46); METAMYELOCYTES % 2 % (0-0); MONOCYTES % (MANUAL) 3 % (0-11)
[2021-09-26] MEDS: traMADol HCL HCL 50 MG TABLET (ULTRAM) PO SCH ×2 (09:00→21:33)
[2021-09-26] MEDS: cefTRIAXone 1 GM in D5W 50 ML IV SCH (09:31)
[2021-09-26 10:04] LABS: INR 1.1 (0.8-1.2); PROTHROMBIN TIME 11.5 SECS (9.5-12.5)
[2021-09-26 12:00] VITALS: BP_SYST 139
[2021-09-26 16:00] VITALS: BP_SYST 140
[2021-09-26] MEDS ORDERED: NS IRRIG SOLN 1000 ML IR ONE (18:30)
[2021-09-26] MEDS ORDERED: PROPOFOL 200MG/ 20ML VIAL (DIPRIVAN) IV ONE (18:30)
[2021-09-26] MEDS ORDERED: NS 100 ML BAG ONE (18:30)
[2021-09-26] MEDS ORDERED: BUPIVACAINE /PF 0.25% 30 ML VIAL INJ ONE (18:30)
[2021-09-26] MEDS ORDERED: LIDOCAINE 1% 10 MG/ML, 50 ML MDV ONE (18:30)
[2021-09-26] MEDS ORDERED: MIDAZOLAM HCL 5 MG/5 ML VIAL ONE (18:30)
[2021-09-26] MEDS ORDERED: NS 1000 ML IV.SOLN IV ONE (18:30)
[2021-09-26] MEDS ORDERED: METOCLOPRAMIDE HCL 10 MG/2 ML VIAL IVP PRN (19:30)
[2021-09-26] MEDS ORDERED: ONDANSETRON HCL 4 MG/2 ML VIAL IVP PRN (19:30)
[2021-09-26] MEDS ORDERED: fentaNYL CITRATE/PF 100 MCG/2 ML AMP IVP PRN ×2 (19:30)
[2021-09-26 21:35] VITALS: BP_SYST 125
[2021-09-26] MEDS: MORPHINE 2 MG/ML INJ. SYRINGE IVP PRN (23:12)
[2021-09-27 01:09] VITALS: BP_SYST 119
[2021-09-27 01:29] VITALS: BP_SYST 119
[2021-09-27] MEDS: DEXAMETHASONE SOD PHOSPHATE 10 MG/ML VIAL IVP SCH (05:58)
[2021-09-27] MEDS: MORPHINE 2 MG/ML INJ. SYRINGE IVP PRN ×2 (06:02→14:58)
[2021-09-27 07:21] LABS: BASOPHILS % (AUTO) 0.2 % (0.0-2.0); HEMATOCRIT 25.6 % (36-48); HEMOGLOBIN 8.6 g/dL (12.0-16.0); LYMPHOCYTES # (AUTO) 0.4 K/uL (1.0-5.5); LYMPHOCYTES % (AUTO) 6.2 % (20.5-51.5); MEAN CORPUSCULAR HEMOGLOBIN 31 pg (27-31); MEAN CORPUSCULAR HGB CONC 34 % (32-36); MEAN CORPUSCULAR VOLUME 92 fL (79.0-98.0); MONOCYTES # (AUTO) 0.4 K/uL (0.0-1.0); MONOCYTES % (AUTO) 6.5 % (1.7-9.3); NEUTROPHILS # (AUTO) 5.1 K/uL (1.8-7.7); NEUTROPHILS % (AUTO) 87.1 % (40.0-70.0); PLATELET COUNT (AUTO) 143 K/uL (130-430); RED BLOOD CELL COUNT(AUTO) 2.77 MIL/uL (4.2-6.2); RED CELL DISTRIBUTION WIDTH 16.2 % (9.0-15.0); WHITE BLOOD COUNT (AUTO) 5.8 K/uL (4.8-10.8)
[2021-09-27 08:00] VITALS: BP_SYST 126
[2021-09-27 08:14] LABS: CALCIUM 8.6 mg/dL (8.4-11.0); CREATININE 3.81 mg/dL (0.55-1.30); POTASSIUM 3.5 mmol/L (3.5-5.1)
[2021-09-27] MEDS: traMADol HCL HCL 50 MG TABLET (ULTRAM) PO SCH (09:17)
[2021-09-27] MEDS: NACL 0.9% 1,000 ML IV SCH (09:19)
[2021-09-27] MEDS: cefTRIAXone 1 GM in D5W 50 ML IV SCH (09:27)
[2021-09-27 12:00] VITALS: BP_SYST 106
[2021-09-27 15:06] VITALS: BP_SYST 151
[2021-09-27 16:07] VITALS: BP_SYST 151
== END 2021-09-27 17:20 | disposition home or self-care (01) | DRG 425 ==
LOC: SED 11:13 → STU 13:26
PROVIDERS: ADMIT General Practice; ATTEND General Practice
PROC: 30233N1 Transfusion of Nonautologous Red Blood Cells into Peripheral Vein, Percutaneous Approach (ICD-10-PCS; 2021-09-24)
PROC: 02HV33Z Insertion of Infusion Device into Superior Vena Cava, Percutaneous Approach (ICD-10-PCS; 2021-09-26)
PROC: B5181ZA Fluoroscopy of Superior Vena Cava using Low Osmolar Contrast, Guidance (ICD-10-PCS; 2021-09-26)
PROC: B548ZZA Ultrasonography of Superior Vena Cava, Guidance (ICD-10-PCS; 2021-09-26)
PROC: 0JH63WZ Insertion of Totally Implantable Vascular Access Device into Chest Subcutaneous Tissue and Fascia, Percutaneous Approach (ICD-10-PCS; principal; 2021-09-26 18:30)
DX: E83.52 Hypercalcemia (principal); N17.0 Acute kidney failure with tubular necrosis; E43 Unspecified severe protein-calorie malnutrition; E87.2 Acidosis; C90.00 Multiple myeloma not having achieved remission; D63.8 Anemia in other chronic diseases classified elsewhere; E87.1 Hypo-osmolality and hyponatremia; N39.0 Urinary tract infection, site not specified; Z20.822 Contact with and (suspected) exposure to COVID-19; Z79.899 Other long term (current) drug therapy; Z68.1 Body mass index [BMI] 19.9 or less, adult
CPT/HCPCS: 36415; 71045; 76000; 76937; 80048; 80053; 81000; 82150; 82607; 82728; 82746; 83036; 83540; 83550; 83605; 83615; 83690; 83735; 84484; 84703; 85007; 85025; 85027; 85610-TC; 85730-TC; 86140; 86886; 86900; 86901; 86920; 87081; 87086; 93005; 94010; 94760; 96361; 96372; 96374; 96375; 99285; C1788; G0378; J0630; J0696; J1100; J2001; J2250; J2270; J2405; J2430; J2704; J3490; J7030; J7040; J7060; P9021

== ENCOUNTER 2021-11-22 13:10 | Inpatient (IN) | payer MEDICAID ==
[~2021-11-22] VITALS: Ht 162.6 cm; Wt 52.6 kg
[~2021-11-22 13:10] MED LIST changes: +ONDA-8 TL
[2021-11-25] MEDS ORDERED: DIPHENHYDRAMINE INJ 50 MG/ML VIAL IVP ONE (21:15)
[2021-11-25] MEDS ORDERED: traMADol HCL HCL 50 MG TABLET (ULTRAM) PO PRN (21:15)
[2021-11-25] MEDS ORDERED: TEMAZEPAM 15 MG CAPSULE PO PRN (21:30)
[2021-11-25] MEDS ORDERED: FAMOTIDINE 20 MG TABLET PO ONE (21:45)
[2021-11-25 23:19] VITALS: BP_SYST 114
[2021-11-26 01:25] LABS: EOSINOPHILS # (AUTO) 0.1 K/uL (0.0-0.4); EOSINOPHILS % (AUTO) 3.1 % (0.0-4.0); LYMPHOCYTES # (AUTO) 0.6 K/uL (1.0-5.5); LYMPHOCYTES % (AUTO) 17.4 % (20.5-51.5); MEAN CORPUSCULAR HEMOGLOBIN 33 pg (27-31); MEAN CORPUSCULAR HGB CONC 35 % (32-36); MEAN CORPUSCULAR VOLUME 96 fL (79.0-98.0); MONOCYTES # (AUTO) 0.4 K/uL (0.0-1.0); MONOCYTES % (AUTO) 12.2 % (1.7-9.3); NEUTROPHILS # (AUTO) 2.4 K/uL (1.8-7.7); NEUTROPHILS % (AUTO) 66.3 % (40.0-70.0); PLATELET COUNT (AUTO) 162 K/uL (130-430); RED CELL DISTRIBUTION WIDTH 19.5 % (9.0-15.0); WHITE BLOOD COUNT (AUTO) 3.6 K/uL (4.8-10.8)
[2021-11-26 01:30] LABS: RED BLOOD CELL COUNT(AUTO) 1.92 MIL/uL (4.2-6.2)
[2021-11-26 01:33] LABS: HEMOGLOBIN 6.4 g/dL (12.0-16.0)
[2021-11-26 01:34] LABS: HEMATOCRIT 18.3 % (36-48)
[2021-11-26 02:00] VITALS: BP_SYST 111
[2021-11-26 08:00] VITALS: BP_SYST 92
[2021-11-26 12:00] VITALS: BP_SYST 92
[2021-11-26] MEDS: FAMOTIDINE 20 MG TABLET PO SCH (14:48)
[2021-11-26 16:00] VITALS: BP_SYST 94
[2021-11-27] VITALS (8 sets, daily range): BP systolic 102–115
[2021-11-27] MEDS: FAMOTIDINE 20 MG TABLET PO SCH (10:46)
[2021-11-27] MEDS ORDERED: DIPHENHYDRAMINE HCL 12.5 MG/5 ML UDC ONE (12:48)
[2021-11-28] VITALS (7 sets, daily range): BP systolic 103–134
[2021-11-28] MEDS: FAMOTIDINE 20 MG TABLET PO SCH (08:37)
--- NOTE | 2021-11-28 12:59 | NUR ---
PATIENT AOX4, BRP WITH FWW WITH WHEELS. APPROPRIATE MOOD, NONDISTRESS. LEFT CHEST CELIA CATH--PATIENT CURRENTLY GETTING IV CHEMO. LAST TREATMENT FOR CHEMO November PER PATIENT.
--- NOTE | 2021-11-29 14:08 | NUR ---
Dispo code 01
== END 2021-11-28 17:24 | disposition home or self-care (01) | DRG 663 ==
LOC: SMU 11-25 19:20
PROVIDERS: ADMIT Specialist; ATTEND Specialist
PROC: 30233N1 Transfusion of Nonautologous Red Blood Cells into Peripheral Vein, Percutaneous Approach (ICD-10-PCS; principal; 2021-11-27)
DX: D64.9 Anemia, unspecified (principal); C90.00 Multiple myeloma not having achieved remission; N18.9 Chronic kidney disease, unspecified; Z20.822 Contact with and (suspected) exposure to COVID-19; Z79.899 Other long term (current) drug therapy; Z92.21 Personal history of antineoplastic chemotherapy
CPT/HCPCS: 36415; 85025; 86870; 86886; 86900; 86901; 86920; 87081; P9021

== ENCOUNTER 2022-01-07 11:53 | Emergency (ER) | payer MEDICAID ==
[~2022-01-07] VITALS: Ht 162.6 cm; Wt 52.6 kg
--- NOTE | 2022-01-07 12:22 | NUR ---
Swab specimens collected for strep, covid and flu.
[2022-01-07 12:23] VITALS: BP_SYST 92
--- NOTE | 2022-01-07 12:27 | NUR ---
BIB FRIEND WITH C/C OF FLU LIKE SYMPTOMS SINCE 01/02/22. PT STATES HER GRAND DAUGHTER HAD COVID AND SHE WAS EXPOSED. PT NOW PRESENTS WITH PRODUCTIVE COUGH, FEVER, PLEURITIC CHEST PAIN, SORE THROAT, AND TACHYCARDIA. PT WITH LOW BP AND FEVER. INFLUENZA, COVID, AND STREP SWABS COLLECTED AND SENT TO LAB. DR. MENCHACA MADE AWARE. PT REMAINS IN TENT WITH FRIEND. INFORMED NURSE MABLE.
--- NOTE | 2022-01-07 12:39 | NUR ---
BIB FRIEND WITH C/C OF FLU LIKE SYMPTOMS SINCE 01/02/22 PT NOW PRESENTS WITH PRODUCTIVE COUGH, FEVER, PLEURITIC CHEST PAIN, SORE THROAT, AND TACHYCARDIA. PT WITH LOW BP AND FEVER.
--- NOTE | 2022-01-07 12:40 | NUR ---
ER at bedside examining patient.
[2022-01-07 12:43] VITALS: BP_SYST 92
[2022-01-07 12:47] LABS: STREPTOCOCCUS A SCREEN (RAPID) NEGATIVE (NEGATIVE)
[2022-01-07] MEDS ORDERED: TRAM50TA PO (13:19)
[2022-01-07] MEDS ORDERED: BENZ1LOZ73 PO (13:19)
[2022-01-07] MEDS ORDERED: NIRM1TAB PO (13:19)
--- NOTE | 2022-01-07 13:25 | NUR ---
Patient given written and verbal discharge instructions and verbalizes understanding. ER MD discussed with patient the results and treatment provided. Patient in stable condition. ID arm band removed. Rx of cepacol, paxlovid and tramadol given. Patient educated on pain management and to follow up with PMD. Opportunity for questions provided and answered. Medication side effect fact sheet provided.
== END 2022-01-07 13:27 | disposition home or self-care (01) ==
LOC: SED 11:53
DX: U07.1 COVID-19 (principal); R05.9 Cough, unspecified; R50.9 Fever, unspecified; J02.9 Acute pharyngitis, unspecified; Z79.899 Other long term (current) drug therapy
CPT/HCPCS: 36415; 86403; 87081; 99283

== ENCOUNTER 2022-07-07 03:05 | Inpatient (IN) | payer MEDICAID ==
[~2022-07-07] VITALS: Ht 160 cm; Wt 60.8 kg
[~2022-07-07 03:05] MED LIST changes: +BENZ1LOZ73 PO; +NIRM1TAB PO; +TRAM50TA PO
[2022-07-07 03:08] VITALS: BP_SYST 130
[2022-07-07] MEDS ORDERED: NACL 0.9% 1,000 ML IV ONE (03:45)
[2022-07-07] MEDS ORDERED: MORPHINE 4 MG INJ. 4 MG/ML VIAL IVP ONE ×2 (03:45→06:45)
[2022-07-07 04:07] LABS: BILIRUBIN,URINE NEGATIVE (NEGATIVE); COLOR,URINE YELLOW (YELLOW); GLUCOSE,URINE NEGATIVE (NEGATIVE); KETONES,URINE NEGATIVE (NEGATIVE); LEUKOCYTE ESTERASE ,URINE TRACE (NEGATIVE); NITRITE, URINE NEGATIVE (NEGATIVE); PH,URINE 6.5 (5.0-8.0); PROTEIN URINE 1+ (NEGATIVE); UROBILINOGEN,URINE 0.2 (0.2-1.0)
[2022-07-07 04:08] LABS: BLOOD, URINE TRACE (NEGATIVE)
[2022-07-07 04:09] LABS: CLARITY/URINE SLIGHTLY CLOUDY (CLEAR)
[2022-07-07 04:18] LABS: BACTERIA,URINE FEW /HPF (None Seen)
[2022-07-07 04:36] LABS: CALCIUM 10.1 mg/dL (8.4-11.0); CREATININE 3.18 mg/dL (0.55-1.30)
[2022-07-07 04:37] LABS: BASOPHILS % (AUTO) 0.5 % (0.0-2.0); EOSINOPHILS # (AUTO) 0.1 K/uL (0.0-0.4); EOSINOPHILS % (AUTO) 1.8 % (0.0-4.0); HEMATOCRIT 28.1 % (36-48); HEMOGLOBIN 9.6 g/dL (12.0-16.0); LYMPHOCYTES # (AUTO) 0.5 K/uL (1.0-5.5); LYMPHOCYTES % (AUTO) 7.5 % (20.5-51.5); MEAN CORPUSCULAR HEMOGLOBIN 31 pg (27-31); MEAN CORPUSCULAR HGB CONC 34 % (32-36); MEAN CORPUSCULAR VOLUME 90 fL (79.0-98.0); MONOCYTES # (AUTO) 0.5 K/uL (0.0-1.0); MONOCYTES % (AUTO) 8.4 % (1.7-9.3); NEUTROPHILS # (AUTO) 5.2 K/uL (1.8-7.7); NEUTROPHILS % (AUTO) 81.8 % (40.0-70.0); PLATELET COUNT (AUTO) 190 K/uL (130-430); RED CELL DISTRIBUTION WIDTH 13.3 % (9.0-15.0); WHITE BLOOD COUNT (AUTO) 6.3 K/uL (4.8-10.8)
[2022-07-07 04:40] LABS: ALBUMIN 4.1 g/dL (3.4-4.8); PHOSPHORUS 3.9 mg/dL (2.7-4.5); TOTAL BILIRUBIN 0.3 mg/dL (0.0-1.0)
[2022-07-07] MEDS ORDERED: cefTRIAXone 1 GM in D5W 50 ML IV ONE (04:45)
[2022-07-07] MEDS ORDERED: cefTRIAXone 1 GM VIAL ONE (05:18)
[2022-07-07] MEDS ORDERED: OMEP20CA15 PO (08:19)
[2022-07-07] MEDS ORDERED: DEC1 PO (08:19)
[2022-07-07] MEDS: NACL 0.9% 1,000 ML IV SCH ×2 (10:04→21:51)
[2022-07-07] MEDS ORDERED: ACETAMINOPHEN 325 MG TABLET ONE (13:39)
[2022-07-07] MEDS ORDERED: ACETAMINOPHEN 325 MG TABLET PO PRN (13:45)
[2022-07-07] MEDS: IBUPROFEN 600 MG TABLET PO PRN ×4 (20:54→22:41)
[2022-07-07] MEDS ORDERED: IBUPROFEN 600 MG TABLET ONE (20:55)
[2022-07-07 21:14] VITALS: BP_SYST 135
[2022-07-07] MEDS: cefTRIAXone 1 GM IVPB PREMIX 50 ML IV SCH (21:52)
[2022-07-07] MEDS ORDERED: NALOXONE HCL 0.4 MG/ML AMP (NARCAN) IVP PRN (22:15)
[2022-07-07] MEDS: HYDROcodone/ACETAMIN 10-325 MG TAB PO PRN (22:36)
[2022-07-08] VITALS: BP_SYST 118
[2022-07-08 07:51] LABS: BASOPHILS % (AUTO) 0.9 % (0.0-2.0); EOSINOPHILS # (AUTO) 0.1 K/uL (0.0-0.4); EOSINOPHILS % (AUTO) 4.1 % (0.0-4.0); HEMATOCRIT 22.8 % (36-48); HEMOGLOBIN 7.5 g/dL (12.0-16.0); LYMPHOCYTES # (AUTO) 0.5 K/uL (1.0-5.5); LYMPHOCYTES % (AUTO) 19.9 % (20.5-51.5); MEAN CORPUSCULAR HEMOGLOBIN 30 pg (27-31); MEAN CORPUSCULAR HGB CONC 33 % (32-36); MEAN CORPUSCULAR VOLUME 91 fL (79.0-98.0); MONOCYTES # (AUTO) 0.3 K/uL (0.0-1.0); MONOCYTES % (AUTO) 12.9 % (1.7-9.3); NEUTROPHILS # (AUTO) 1.5 K/uL (1.8-7.7); NEUTROPHILS % (AUTO) 62.2 % (40.0-70.0); PLATELET COUNT (AUTO) 149 K/uL (130-430); RED CELL DISTRIBUTION WIDTH 13.4 % (9.0-15.0); WHITE BLOOD COUNT (AUTO) 2.4 K/uL (4.8-10.8)
[2022-07-08 08:00] VITALS: BP_SYST 131
[2022-07-08] MEDS: HYDROcodone/ACETAMIN 10-325 MG TAB PO PRN ×3 (08:19→20:14)
[2022-07-08 08:29] LABS: ALBUMIN 3.2 g/dL (3.4-4.8); CALCIUM 9.5 mg/dL (8.4-11.0); CREATININE 3.04 mg/dL (0.55-1.30); TOTAL BILIRUBIN 0.2 mg/dL (0.0-1.0)
[2022-07-08] MEDS: NACL 0.9% 1,000 ML IV SCH ×2 (08:55→22:53)
[2022-07-08 12:00] VITALS: BP_SYST 137
[2022-07-08 16:00] VITALS: BP_SYST 121
[2022-07-08 19:40] VITALS: BP_SYST 116
[2022-07-08] MEDS: cefTRIAXone 1 GM IVPB PREMIX 50 ML IV SCH (20:13)
[2022-07-09] MEDS: HYDROcodone/ACETAMIN 10-325 MG TAB PO PRN ×5 (00:39→20:20)
[2022-07-09 01:00] VITALS: BP_SYST 121
[2022-07-09 06:30] LABS: BASOPHILS % (AUTO) 0.9 % (0.0-2.0); EOSINOPHILS # (AUTO) 0.1 K/uL (0.0-0.4); EOSINOPHILS % (AUTO) 4.6 % (0.0-4.0); HEMATOCRIT 23.8 % (36-48); LYMPHOCYTES # (AUTO) 0.5 K/uL (1.0-5.5); LYMPHOCYTES % (AUTO) 17.4 % (20.5-51.5); MEAN CORPUSCULAR HEMOGLOBIN 31 pg (27-31); MEAN CORPUSCULAR HGB CONC 34 % (32-36); MEAN CORPUSCULAR VOLUME 92 fL (79.0-98.0); MONOCYTES # (AUTO) 0.3 K/uL (0.0-1.0); MONOCYTES % (AUTO) 12.7 % (1.7-9.3); NEUTROPHILS # (AUTO) 1.7 K/uL (1.8-7.7); NEUTROPHILS % (AUTO) 64.4 % (40.0-70.0); PLATELET COUNT (AUTO) 137 K/uL (130-430); RED BLOOD CELL COUNT(AUTO) 2.59 MIL/uL (4.2-6.2); RED CELL DISTRIBUTION WIDTH 13.3 % (9.0-15.0); WHITE BLOOD COUNT (AUTO) 2.6 K/uL (4.8-10.8)
[2022-07-09 07:31] LABS: CALCIUM 9.5 mg/dL (8.4-11.0); CREATININE 3.16 mg/dL (0.55-1.30)
[2022-07-09 08:51] VITALS: BP_SYST 132
[2022-07-09] MEDS: NACL 0.9% 1,000 ML IV SCH (11:24)
[2022-07-09 13:21] VITALS: BP_SYST 149
[2022-07-09 16:35] VITALS: BP_SYST 156
[2022-07-09 19:56] VITALS: BP_SYST 139
[2022-07-09] MEDS: cefTRIAXone 1 GM IVPB PREMIX 50 ML IV SCH (20:21)
[2022-07-10 00:10] VITALS: BP_SYST 140
[2022-07-10] MEDS: NACL 0.9% 1,000 ML IV SCH ×2 (00:27→14:19)
[2022-07-10] MEDS: HYDROcodone/ACETAMIN 10-325 MG TAB PO PRN ×3 (03:56→19:51)
[2022-07-10 08:25] VITALS: BP_SYST 132
[2022-07-10 10:55] VITALS: BP_SYST 132
[2022-07-10 15:44] VITALS: BP_SYST 128
[2022-07-10 20:00] VITALS: BP_SYST 137
[2022-07-10] MEDS: cefTRIAXone 1 GM IVPB PREMIX 50 ML IV SCH (21:05)
[2022-07-11] VITALS: BP_SYST 131
[2022-07-11] MEDS: HYDROcodone/ACETAMIN 10-325 MG TAB PO PRN ×3 (04:30→21:15)
[2022-07-11] MEDS: NACL 0.9% 1,000 ML IV SCH ×2 (04:32→17:01)
[2022-07-11 06:57] LABS: BASOPHILS % (AUTO) 1.1 % (0.0-2.0); EOSINOPHILS # (AUTO) 0.1 K/uL (0.0-0.4); EOSINOPHILS % (AUTO) 4.4 % (0.0-4.0); HEMATOCRIT 24.2 % (36-48); HEMOGLOBIN 8.3 g/dL (12.0-16.0); LYMPHOCYTES # (AUTO) 0.5 K/uL (1.0-5.5); LYMPHOCYTES % (AUTO) 18.8 % (20.5-51.5); MEAN CORPUSCULAR HEMOGLOBIN 31 pg (27-31); MEAN CORPUSCULAR HGB CONC 34 % (32-36); MEAN CORPUSCULAR VOLUME 91 fL (79.0-98.0); MONOCYTES # (AUTO) 0.3 K/uL (0.0-1.0); NEUTROPHILS # (AUTO) 1.6 K/uL (1.8-7.7); NEUTROPHILS % (AUTO) 63.7 % (40.0-70.0); PLATELET COUNT (AUTO) 145 K/uL (130-430); RED BLOOD CELL COUNT(AUTO) 2.67 MIL/uL (4.2-6.2); RED CELL DISTRIBUTION WIDTH 13.1 % (9.0-15.0); WHITE BLOOD COUNT (AUTO) 2.4 K/uL (4.8-10.8)
[2022-07-11 07:48] LABS: CALCIUM 9.6 mg/dL (8.4-11.0); CREATININE 2.96 mg/dL (0.55-1.30)
[2022-07-11 08:04] VITALS: BP_SYST 134
[2022-07-11 11:34] VITALS: BP_SYST 130
[2022-07-11 17:15] VITALS: BP_SYST 125
[2022-07-11 20:04] VITALS: BP_SYST 122
[2022-07-11] MEDS: cefTRIAXone 1 GM IVPB PREMIX 50 ML IV SCH (21:14)
[2022-07-12] VITALS: BP_SYST 114
[2022-07-12] MEDS: NACL 0.9% 1,000 ML IV SCH ×2 (06:24→20:50)
[2022-07-12] MEDS: HYDROcodone/ACETAMIN 10-325 MG TAB PO PRN ×3 (06:25→20:47)
[2022-07-12 08:07] LABS: FOLATE (FOLIC ACID) 8.3 ng/mL (>3.0)
[2022-07-12 08:09] VITALS: BP_SYST 140
[2022-07-12] MEDS: IBUPROFEN 600 MG TABLET PO PRN (08:55)
[2022-07-12 12:00] VITALS: BP_SYST 124
[2022-07-12 16:00] VITALS: BP_SYST 120
[2022-07-12] MEDS: cefTRIAXone 1 GM IVPB PREMIX 50 ML IV SCH (20:50)
[2022-07-13] VITALS (7 sets, daily range): BP systolic 122–150
[2022-07-13] MEDS: HYDROcodone/ACETAMIN 10-325 MG TAB PO PRN ×5 (01:50→22:17)
[2022-07-13 07:05] LABS: EOSINOPHILS # (AUTO) 0.1 K/uL (0.0-0.4); EOSINOPHILS % (AUTO) 5.3 % (0.0-4.0); HEMATOCRIT 23.7 % (36-48); HEMOGLOBIN 8.2 g/dL (12.0-16.0); LYMPHOCYTES # (AUTO) 0.6 K/uL (1.0-5.5); LYMPHOCYTES % (AUTO) 22.1 % (20.5-51.5); MEAN CORPUSCULAR HEMOGLOBIN 31 pg (27-31); MEAN CORPUSCULAR HGB CONC 34 % (32-36); MEAN CORPUSCULAR VOLUME 91 fL (79.0-98.0); MONOCYTES # (AUTO) 0.3 K/uL (0.0-1.0); MONOCYTES % (AUTO) 13.1 % (1.7-9.3); NEUTROPHILS # (AUTO) 1.5 K/uL (1.8-7.7); NEUTROPHILS % (AUTO) 58.5 % (40.0-70.0); PLATELET COUNT (AUTO) 131 K/uL (130-430); RED BLOOD CELL COUNT(AUTO) 2.62 MIL/uL (4.2-6.2); RED CELL DISTRIBUTION WIDTH 13.6 % (9.0-15.0); WHITE BLOOD COUNT (AUTO) 2.6 K/uL (4.8-10.8)
[2022-07-13 07:52] LABS: CALCIUM 9.4 mg/dL (8.4-11.0)
[2022-07-13] MEDS: NACL 0.9% 1,000 ML IV SCH ×2 (12:41→22:04)
[2022-07-13] MEDS: cefTRIAXone 1 GM IVPB PREMIX 50 ML IV SCH (22:03)
[2022-07-14] MEDS: HYDROcodone/ACETAMIN 10-325 MG TAB PO PRN ×3 (02:39→13:37)
[2022-07-14] MEDS: NACL 0.9% 1,000 ML IV SCH (05:06)
[2022-07-14 07:20] VITALS: BP_SYST 133
[2022-07-14 12:00] VITALS: BP_SYST 130
[2022-07-14 15:53] VITALS: BP_SYST 130
[2022-07-14] MEDS ORDERED: traMADol HCL HCL 50 MG TABLET (ULTRAM) PO PRN (16:30)
[2022-07-14] MEDS ORDERED: DEXAMETHASONE 1 MG TABLET (DECADRON) PO SCH (16:30)
[2022-07-14] MEDS ORDERED: ONDANSETRON 4 MG ODT TAB TL PRN (16:30)
[2022-07-14 16:46] VITALS: BP_SYST 132
[2022-07-14] MEDS ORDERED: BENZOCAINE/MENTHOL 1 EACH LOZENGE PO SCH (19:00)
[2022-07-15] MEDS ORDERED: PANTOPRAZOLE SODIUM 40 MG TAB PO SCH (09:00)
[2022-07-15] MEDS ORDERED: OMEPRAZOLE Non-Formulary 20 MG CAPSULE.DR PO SCH (09:00)
== END 2022-07-14 15:00 | disposition home or self-care (01) | DRG 463 ==
LOC: SED 03:05 → SMU 06:12
PROVIDERS: ADMIT Internal Medicine; ATTEND Internal Medicine
DX: N10 Acute pyelonephritis (principal); N17.0 Acute kidney failure with tubular necrosis; E44.0 Moderate protein-calorie malnutrition; M84.48XA Pathological fracture, other site, initial encounter for fracture; C90.00 Multiple myeloma not having achieved remission; E83.52 Hypercalcemia; M89.9 Disorder of bone, unspecified; Z20.822 Contact with and (suspected) exposure to COVID-19; Z79.899 Other long term (current) drug therapy; Z68.23 Body mass index [BMI] 23.0-23.9, adult
CPT/HCPCS: 36415; 72146; 72148; 76376; 80048; 80053; 81000; 82272; 82607; 82728; 82746; 83690; 83735; 84100; 85025; 87086; 96365; 96375; 97116-GP; 97163-GP; 99285; J0696; J2270

== ENCOUNTER 2022-11-17 09:30 | Emergency (ER) | payer MEDICAID ==
[~2022-11-17] VITALS: Ht 160 cm; Wt 61.2 kg
[~2022-11-17 09:30] MED LIST changes: +DEC1 PO; +OMEP20CA15 PO; -TRAM50TA PO
[2022-11-17 09:47] VITALS: BP_SYST 151; PULSE 106; RESP 16; TEMP 98.3; O2SAT 99
[2022-11-17 10:00] LABS: BASOPHILS % (AUTO) 0.4 % (0.0-2.0); EOSINOPHILS # (AUTO) 0.1 K/uL (0.0-0.4); EOSINOPHILS % (AUTO) 2.6 % (0.0-4.0); HEMATOCRIT 24.2 % (36-48); LYMPHOCYTES # (AUTO) 0.1 K/uL (1.0-5.5); LYMPHOCYTES % (AUTO) 3.8 % (20.5-51.5); MEAN CORPUSCULAR HEMOGLOBIN 31 pg (27-31); MEAN CORPUSCULAR HGB CONC 33 % (32-36); MEAN CORPUSCULAR VOLUME 93 fL (79.0-98.0); MONOCYTES # (AUTO) 0.2 K/uL (0.0-1.0); MONOCYTES % (AUTO) 7.5 % (1.7-9.3); NEUTROPHILS # (AUTO) 2.8 K/uL (1.8-7.7); NEUTROPHILS % (AUTO) 85.7 % (40.0-70.0); PLATELET COUNT (AUTO) 111 K/uL (130-430); RED BLOOD CELL COUNT(AUTO) 2.62 MIL/uL (4.2-6.2); RED CELL DISTRIBUTION WIDTH 15.6 % (9.0-15.0); WHITE BLOOD COUNT (AUTO) 3.3 K/uL (4.8-10.8)
[2022-11-17 10:15] LABS: ANION GAP 13 (5-15); CHLORIDE 106 mmol/L (98-107); CREATININE 2.94 mg/dL (0.55-1.30); GFR AFRICAN AMERICAN 21 mL/min (>90); GLUCOSE 144 mg/dL (74-106); UREA NITROGEN, BLOOD 36 mg/dL (8-21)
[2022-11-17 10:20] LABS: PROTHROMBIN TIME 9.9 SECS (9.5-12.5)
[2022-11-17 10:22] LABS: ALANINE AMINOTRANSFERASE 27 U/L (12-78); ALBUMIN 3.7 g/dL (3.4-4.8); ASPARTATE AMINOTRANSFERASE 20 U/L (10-37); TOTAL BILIRUBIN 0.2 mg/dL (0.0-1.0)
[2022-11-17] MEDS ORDERED: PSEU30TA36 PO (11:19)
[2022-11-17] MEDS ORDERED: ALBMDI INH (11:19)
[2022-11-17] MEDS ORDERED: HYDROcodone/ACETAMIN 7.5-325 MG TAB PO ONE (11:30)
[2022-11-17 11:43] VITALS: BP_SYST 135; PULSE 74; RESP 17; TEMP 97.3; O2SAT 97
== END 2022-11-17 11:44 | disposition home or self-care (01) ==
LOC: SED 09:30
DX: J40 Bronchitis, not specified as acute or chronic (principal); R06.02 Shortness of breath; R07.9 Chest pain, unspecified; R11.0 Nausea; Z79.899 Other long term (current) drug therapy; Z20.822 Contact with and (suspected) exposure to COVID-19
CPT/HCPCS: 36415; 71045; 80053; 82550; 83605; 83880; 84484; 85025; 85379; 85610-TC; 85730-TC; 93005; 99285

== ENCOUNTER 2023-06-16 13:45 | Emergency (ER) | payer MEDICAID ==
[~2023-06-16] VITALS: Ht 160 cm; Wt 61.2 kg
[~2023-06-16 13:45] MED LIST changes: +ALBMDI INH; +PSEU30TA36 PO
[2023-06-16 13:59] VITALS: BP_SYST 152; PULSE 74; RESP 15; TEMP 97.8; O2SAT 97
== END 2023-06-16 14:50 | disposition left against medical advice (07) ==
LOC: SED 13:45
DX: R07.81 Pleurodynia (principal); Z53.21 Procedure and treatment not carried out due to patient leaving prior to being seen by health care provider
CPT/HCPCS: 99281

== ENCOUNTER 2023-08-10 13:58 | Inpatient (IN) | payer MEDICAID ==
[~2023-08-10] VITALS: Ht 157.5 cm; Wt 61.2 kg
[2023-08-10 14:23] VITALS: BP_SYST 115; PULSE 113; RESP 18; TEMP 99.7; O2SAT 97
[2023-08-10 15:22] LABS: BASOPHILS % (AUTO) 0.2 % (0.0-2.0); EOSINOPHILS % (AUTO) 0.1 % (0.0-4.0); HEMATOCRIT 29.3 % (36-48); HEMOGLOBIN 9.9 g/dL (12.0-16.0); LYMPHOCYTES # (AUTO) 0.2 K/uL (1.0-5.5); LYMPHOCYTES % (AUTO) 7.3 % (20.5-51.5); MEAN CORPUSCULAR HEMOGLOBIN 30 pg (27-31); MEAN CORPUSCULAR HGB CONC 34 % (32-36); MEAN CORPUSCULAR VOLUME 89 fL (79.0-98.0); MONOCYTES # (AUTO) 0.3 K/uL (0.0-1.0); MONOCYTES % (AUTO) 9.7 % (1.7-9.3); NEUTROPHILS # (AUTO) 2.8 K/uL (1.8-7.7); NEUTROPHILS % (AUTO) 82.7 % (40.0-70.0); PLATELET COUNT (AUTO) 111 K/uL (130-430); RED BLOOD CELL COUNT(AUTO) 3.29 MIL/uL (4.2-6.2); RED CELL DISTRIBUTION WIDTH 14.5 % (9.0-15.0); WHITE BLOOD COUNT (AUTO) 3.4 K/uL (4.8-10.8)
[2023-08-10 15:27] LABS: ANION GAP 14 (5-15); CALCIUM 9.4 mg/dL (8.4-11.0); CARBON DIOXIDE 20 mmol/L (23-29); CHLORIDE 106 mmol/L (98-107); CREATININE 3.05 mg/dL (0.55-1.30); GFR AFRICAN AMERICAN 20 mL/min (>90); GLUCOSE 98 mg/dL (74-106); SODIUM SERUM 140 mmol/L (136-145); UREA NITROGEN, BLOOD 37 mg/dL (8-21)
[2023-08-10 15:38] LABS: GFR NON AFRICAN-AMERICAN 17 mL/min (>90)
[2023-08-10 15:39] LABS: COVID19 ANTIGEN SOFIA FIA NEGATIVE (NEGATIVE)
[2023-08-10 15:40] LABS: INFLUENZA TYPE A Negative (NEGATIVE)
[2023-08-10 15:43] LABS: INFLUENZA TYPE B POSITIVE (NEGATIVE)
[2023-08-10 16:01] LABS: ALANINE AMINOTRANSFERASE 46 U/L (12-78); ALBUMIN 3.5 g/dL (3.4-4.8); ASPARTATE AMINOTRANSFERASE 19 U/L (10-37); BILIRUBIN,DIRECT 0.1 mg/dL (0.0-0.3); CREATINE KINASE, TOTAL 17 U/L (26-192); TOTAL BILIRUBIN 0.3 mg/dL (0.0-1.0); TOTAL PROTEIN, SERUM 7.3 g/dL (6.4-8.3)
[2023-08-10] MEDS: NACL 0.9% 1,000 ML IV ONE (16:23)
[2023-08-10] MEDS: ACETAMINOPHEN 500 MG TABLET PO ONE (16:24)
[2023-08-10] MEDS: ONDANSETRON 4 MG ODT TAB PO ONE (16:24)
[2023-08-10] MEDS ORDERED: OSELTAMIVIR PHOSPHATE 30 MG CAPSULE PO SCH (16:30)
[2023-08-10] MEDS ORDERED: POTASSIUM CHLORIDE 20 MEQ TABLET.ER PO PRN (16:45)
[2023-08-10] MEDS ORDERED: MORPHINE 2 MG/ML INJ. SYRINGE IVP PRN ×2 (16:45)
[2023-08-10] MEDS ORDERED: DOCUSATE SODIUM 100 MG CAPSULE PO PRN (16:45)
[2023-08-10] MEDS ORDERED: ZOLPIDEM TARTRATE 5 MG TABLET PO PRN (16:45)
[2023-08-10] MEDS ORDERED: MUPIROCIN 2% TOPICAL OINTMENT 22 GM NS PRN (16:45)
[2023-08-10] MEDS ORDERED: LORazepam 2 MG/ML VIAL IVP PRN (16:45)
[2023-08-10] MEDS ORDERED: MAGNESIUM SULFATE 50 ML IV PRN (16:45)
[2023-08-10] MEDS ORDERED: ONDANSETRON HCL 4 MG/2 ML VIAL IVP PRN (16:45)
[2023-08-10 16:50] VITALS: BP_SYST 115; PULSE 98; O2SAT 97
[2023-08-10] MEDS: D5NS 1,000 ML IV SCH (17:50)
[2023-08-10] MEDS ORDERED: FOLI-43 PO (17:54)
[2023-08-10] MEDS ORDERED: DEXA4TAB PO (17:54)
[2023-08-10] MEDS: OSELTAMIVIR PHOSPHATE 30 MG CAPSULE PO ONE (19:14)
[2023-08-10] MEDS: HEPARIN SODIUM,PORCINE 5,000 UNITS/ML VIAL SUBCUT SCH (21:00)
[2023-08-10 21:24] VITALS: BP_SYST 88; PULSE 77; RESP 18; TEMP 97.9; O2SAT 95
[2023-08-10 22:00] VITALS: BP_SYST 90; PULSE 72; PULSE 75; RESP 18; TEMP 97.9
[2023-08-10] MEDS: PIPERACILLIN/TAZOBACTAM 2.25 GM in NS 50 ML IV SCH (22:07)
[2023-08-10 22:10] VITALS: BP_SYST 93; PULSE 71; RESP 18; TEMP 97.6; O2SAT 95
[2023-08-10 22:30] VITALS: O2SAT 95
[2023-08-10] MEDS: ACETAMINOPHEN 500 MG TABLET PO PRN (22:32)
[2023-08-10] MEDS: IPRATROPIUM/ALBUTEROL SULFATE 3 ML AMPUL.NEB (DUONEB) INH PRN (23:06)
[2023-08-11] VITALS (10 sets, daily range): BP systolic 85–105; PULSE 77–109; RESP 16–20; TEMP 97.4–99.4; O2SAT 96–99
[2023-08-11 05:52] LABS: HEMATOCRIT 25.1 % (36-48); HEMOGLOBIN 8.4 g/dL (12.0-16.0); MEAN CORPUSCULAR HEMOGLOBIN 30 pg (27-31); MEAN CORPUSCULAR HGB CONC 33 % (32-36); MEAN CORPUSCULAR VOLUME 90 fL (79.0-98.0); PLATELET COUNT (AUTO) 95 K/uL (130-430); RED BLOOD CELL COUNT(AUTO) 2.81 MIL/uL (4.2-6.2); RED CELL DISTRIBUTION WIDTH 14.6 % (9.0-15.0)
[2023-08-11 06:22] LABS: CALCIUM 8.8 mg/dL (8.4-11.0); CREATININE 2.8 mg/dL (0.55-1.30); POTASSIUM 3.9 mmol/L (3.5-5.1)
[2023-08-11 07:51] LABS: WHITE BLOOD COUNT (AUTO) 1.9 K/uL (4.8-10.8)
[2023-08-11] MEDS: ACETAMINOPHEN 500 MG TABLET PO PRN ×2 (09:52→20:24)
[2023-08-11] MEDS: OSELTAMIVIR PHOSPHATE 30 MG CAPSULE PO SCH (09:57)
[2023-08-11 10:03] LABS: BAND % (MANUAL) 0 % (0-6); BASOPHILS % (MANUAL) 0 % (0-2); EOSINOPHILS % (MANUAL) 2 % (0-7); LYMPHOCYTES % (MANUAL) 14 % (20-46); MONOCYTES % (MANUAL) 6 % (0-11)
[2023-08-11 10:04] LABS: PLATELET ESTIMATE DECREASED (ADEQUATE)
[2023-08-11] MEDS: TBO-FILGRASTIM 480 MCG/0.8 ML SYRINGE SUBCUT ONE (10:49)
[2023-08-11] MEDS: NACL 0.9% 1,000 ML IV SCH (12:39)
[2023-08-11] MEDS ORDERED: HYDROcodone/ACETAMIN 10-325 MG TAB PO PRN (21:00)
[2023-08-11] MEDS ORDERED: HYDROcodone/ACETAMIN 5-325 MG TAB (NORCO/ VICODIN) PO PRN (21:00)
[2023-08-12] VITALS: BP_SYST 109; PULSE 87; RESP 16; TEMP 98.9; O2SAT 97
[2023-08-12 04:20] VITALS: BP_SYST 97; PULSE 86; RESP 16; TEMP 98.7; O2SAT 96
[2023-08-12 06:28] LABS: BASOPHILS % (AUTO) 0.1 % (0.0-2.0); EOSINOPHILS % (AUTO) 0.7 % (0.0-4.0); HEMATOCRIT 26.2 % (36-48); HEMOGLOBIN 8.8 g/dL (12.0-16.0); LYMPHOCYTES # (AUTO) 0.3 K/uL (1.0-5.5); LYMPHOCYTES % (AUTO) 5.5 % (20.5-51.5); MEAN CORPUSCULAR HEMOGLOBIN 30 pg (27-31); MEAN CORPUSCULAR HGB CONC 34 % (32-36); MEAN CORPUSCULAR VOLUME 89 fL (79.0-98.0); MONOCYTES # (AUTO) 0.2 K/uL (0.0-1.0); MONOCYTES % (AUTO) 4.2 % (1.7-9.3); NEUTROPHILS % (AUTO) 89.5 % (40.0-70.0); PLATELET COUNT (AUTO) 125 K/uL (130-430); RED BLOOD CELL COUNT(AUTO) 2.93 MIL/uL (4.2-6.2); RED CELL DISTRIBUTION WIDTH 14.7 % (9.0-15.0)
[2023-08-12 06:58] LABS: CALCIUM 9.3 mg/dL (8.4-11.0); CREATININE 2.46 mg/dL (0.55-1.30); POTASSIUM 4.4 mmol/L (3.5-5.1)
[2023-08-12 07:34] LABS: WHITE BLOOD COUNT (AUTO) 5.6 K/uL (4.8-10.8)
[2023-08-12 08:00] VITALS: BP_SYST 107; PULSE 77; RESP 16; TEMP 97.8; O2SAT 97
[2023-08-12] MEDS: LEVOFLOXACIN 250 MG/D5W 50 ML IV SCH (09:20)
[2023-08-12 11:14] VITALS: BP_SYST 91; PULSE 83; RESP 16; TEMP 98.3; O2SAT 93
[2023-08-12] MEDS: guaiFENesin/DEXTROMETHORPHAN 1 EACH TAB.ER.12H PO ONE (14:14)
[2023-08-12 15:18] VITALS: BP_SYST 110; PULSE 72; RESP 16; TEMP 98.5; O2SAT 98
[2023-08-12 21:54] VITALS: BP_SYST 140; PULSE 72; RESP 19; TEMP 98; O2SAT 97
[2023-08-12] MEDS: guaiFENesin/DEXTROMETHORPHAN 1 EACH TAB.ER.12H PO SCH (22:26)
[2023-08-13 00:11] VITALS: BP_SYST 109; PULSE 63; RESP 16; TEMP 98.2; O2SAT 97
[2023-08-13 04:24] VITALS: O2SAT 97
[2023-08-13 05:58] LABS: BASOPHILS % (AUTO) 0.1 % (0.0-2.0); EOSINOPHILS # (AUTO) 0.1 K/uL (0.0-0.4); EOSINOPHILS % (AUTO) 1.2 % (0.0-4.0); HEMATOCRIT 24.3 % (36-48); HEMOGLOBIN 8.3 g/dL (12.0-16.0); LYMPHOCYTES # (AUTO) 0.3 K/uL (1.0-5.5); LYMPHOCYTES % (AUTO) 3.6 % (20.5-51.5); MEAN CORPUSCULAR HEMOGLOBIN 30 pg (27-31); MEAN CORPUSCULAR HGB CONC 34 % (32-36); MEAN CORPUSCULAR VOLUME 89 fL (79.0-98.0); MONOCYTES # (AUTO) 0.4 K/uL (0.0-1.0); MONOCYTES % (AUTO) 4.6 % (1.7-9.3); NEUTROPHILS % (AUTO) 90.5 % (40.0-70.0); PLATELET COUNT (AUTO) 132 K/uL (130-430); RED BLOOD CELL COUNT(AUTO) 2.75 MIL/uL (4.2-6.2); RED CELL DISTRIBUTION WIDTH 14.3 % (9.0-15.0); WHITE BLOOD COUNT (AUTO) 8.8 K/uL (4.8-10.8)
[2023-08-13 06:35] LABS: TOTAL IRON BIND. CAPACITY 196 ug/dL (250-450)
[2023-08-13 06:44] LABS: CALCIUM 9.3 mg/dL (8.4-11.0); CREATININE 2.52 mg/dL (0.55-1.30); POTASSIUM 4.8 mmol/L (3.5-5.1)
[2023-08-13 08:15] VITALS: BP_SYST 112; PULSE 64; RESP 17; TEMP 98; O2SAT 98
[2023-08-13] MEDS: HEPARIN SODIUM,PORCINE 5,000 UNITS/ML VIAL SUBCUT SCH (09:54)
[2023-08-13] MEDS: SOD FERRIC GLUC COMPLEX/SUC 125 MG in NS 100 ML IV SCH (10:00)
[2023-08-13 10:19] VITALS: O2SAT 98
[2023-08-13] MEDS ORDERED: [UNRECOGNIZED DRUG - CODE] PO (11:48)
[2023-08-13] MEDS ORDERED: LEVO250T73 PO (12:01)
[2023-08-13] MEDS ORDERED: OSEL6SUS4 PO (12:01)
[2023-08-13 13:23] VITALS: BP_SYST 123; PULSE 80; RESP 16; TEMP 98; O2SAT 98
[2023-08-14 08:50] LABS: FREE KAPPA LIGHT CHAIN SERUM 25.9 mg/L (3.30-19.40); FREE LAMBDA LIGHT CHAIN SERUM 232.9 mg/L (5.71-26.30); KAPPA & LAMBDA LT CHAIN RATIO 0.11 ratio (0.26-1.65)
[2023-08-14] MEDS ORDERED: FOLIC ACID 1 MG TABLET PO SCH (09:00)
== END 2023-08-13 14:36 | disposition home or self-care (01) | DRG 660 ==
LOC: SED 13:58 → SMU 16:47
PROVIDERS: ADMIT General Practice; ATTEND General Practice
DX: D61.810 Antineoplastic chemotherapy induced pancytopenia (principal); J96.01 Acute respiratory failure with hypoxia; N17.0 Acute kidney failure with tubular necrosis; J20.9 Acute bronchitis, unspecified; R65.11 Systemic inflammatory response syndrome (SIRS) of non-infectious origin with acute organ dysfunction; J44.1 Chronic obstructive pulmonary disease with (acute) exacerbation; J10.1 Influenza due to other identified influenza virus with other respiratory manifestations; J44.0 Chronic obstructive pulmonary disease with (acute) lower respiratory infection; T45.1X5A Adverse effect of antineoplastic and immunosuppressive drugs, initial encounter; Z20.822 Contact with and (suspected) exposure to COVID-19; D72.819 Decreased white blood cell count, unspecified; N18.30 Chronic kidney disease, stage 3 unspecified; I12.9 Hypertensive chronic kidney disease with stage 1 through stage 4 chronic kidney disease, or unspecified chronic kidney disease; Z79.899 Other long term (current) drug therapy; Y92.89 Other specified places as the place of occurrence of the external cause
CPT/HCPCS: 36415; 71045; 80048; 80076; 82550; 82784; 83037; 83540; 83550; 83605; 83735; 83880; 84484; 85007; 85025; 85027; 85610; 85730; 87040; 93005; 94640; 94760; 96360; 99285; J1447; J1644; J1956; J2543; J2916; Q0162

== ENCOUNTER 2024-03-03 13:55 | Inpatient (IN) | payer MEDICAID ==
[~2024-03-03] VITALS: Ht 160 cm; Wt 65.8 kg
[~2024-03-03 13:55] MED LIST changes: +ACYC400T19 PO; -ALBMDI INH; -BENZ1LOZ73 PO; +BORT3.5V IM; -DEC1 PO; +DENO120V SQ; +DEXA4TAB PO; +FOLI-43 PO; +HYDR-3925 PO; -NIRM1TAB PO; -OMEP20CA15 PO; -ONDA-8 TL; +OSCD500 PO; -PSEU30TA36 PO; -TRAM50TA2 PO
[2024-03-03 14:05] VITALS: BP_SYST 136; PULSE 115; RESP 20; TEMP 98.3; O2SAT 98
[2024-03-03] MEDS ORDERED: CEFEPIME 2 GM/VIAL (MAXIPIME) ONE (14:59)
[2024-03-03] MEDS: MORPHINE 4 MG INJ. 4 MG/ML VIAL IVP ONE (15:05)
[2024-03-03] MEDS: NACL 0.9% 2,000 ML IV ONE (15:06)
[2024-03-03] MEDS: CEFEPIME 2 GM in D5W 100 ML IV ONE (15:06)
[2024-03-03 15:09] LABS: MEAN CORPUSCULAR HEMOGLOBIN 32 pg (27-31); MEAN CORPUSCULAR HGB CONC 35 % (32-36); MEAN CORPUSCULAR VOLUME 91 fL (79.0-98.0); RED BLOOD CELL COUNT(AUTO) 2.17 MIL/uL (4.2-6.2); RED CELL DISTRIBUTION WIDTH 17.3 % (9.0-15.0)
[2024-03-03 15:12] LABS: INR 0.9 (0.8-1.2); PROTHROMBIN TIME 9.9 SECS (9.5-12.5)
[2024-03-03 15:19] LABS: ALANINE AMINOTRANSFERASE 75 U/L (12-78); ALBUMIN 3.5 g/dL (3.4-4.8); ANION GAP 15 (5-15); ASPARTATE AMINOTRANSFERASE 26 U/L (10-37); BILIRUBIN,DIRECT 0.1 mg/dL (0.0-0.3); CALCIUM 8.7 mg/dL (8.4-11.0); CARBON DIOXIDE 19 mmol/L (23-29); CHLORIDE 107 mmol/L (98-107); CREATININE 3.13 mg/dL (0.55-1.30); GFR AFRICAN AMERICAN 20 mL/min (>90); GLUCOSE 98 mg/dL (74-106); LACTATE DEHYDROGENASE 102 U/L (81-234); LIPASE 40 U/L (16-77); PHOSPHORUS 3.4 mg/dL (2.7-4.5); POTASSIUM 3.3 mmol/L (3.5-5.1); SODIUM SERUM 141 mmol/L (136-145); TOTAL BILIRUBIN 0.3 mg/dL (0.0-1.0); TOTAL PROTEIN, SERUM 6.5 g/dL (6.4-8.3); UREA NITROGEN, BLOOD 33 mg/dL (8-21)
[2024-03-03 15:21] LABS: GFR NON AFRICAN-AMERICAN 16 mL/min (>90)
[2024-03-03 15:25] LABS: HEMATOCRIT 19.7 % (36-48); HEMOGLOBIN 6.9 g/dL (12.0-16.0); WHITE BLOOD COUNT (AUTO) 1.7 K/uL (4.8-10.8)
[2024-03-03] MEDS ORDERED: ONDANSETRON HCL 4 MG/2 ML VIAL IVP PRN (17:15)
[2024-03-03 19:04] LABS: BAND % (MANUAL) 9 % (0-6); BASOPHILS % (MANUAL) 0 % (0-2); EOSINOPHILS % (MANUAL) 22 % (0-7); LYMPHOCYTES % (MANUAL) 25 % (20-46); MONOCYTES % (MANUAL) 4 % (0-11); PLATELET ESTIMATE DECREASED (ADEQUATE)
[2024-03-03 19:05] LABS: ANISOCYTOSIS 1+; OVALOCYTES MODERATE; TEAR DROP CELLS MODERATE
[2024-03-03 19:16] LABS: PLATELET COUNT (AUTO) 93 K/uL (130-430)
[2024-03-03 19:24] LABS: BILIRUBIN,URINE NEGATIVE (NEGATIVE); BLOOD, URINE NEGATIVE (NEGATIVE); COLOR,URINE YELLOW (YELLOW); GLUCOSE,URINE NEGATIVE (NEGATIVE); KETONES,URINE NEGATIVE (NEGATIVE); LEUKOCYTE ESTERASE ,URINE NEGATIVE (NEGATIVE); NITRITE, URINE NEGATIVE (NEGATIVE); PROTEIN URINE 1+ (NEGATIVE); UROBILINOGEN,URINE 0.2 (0.2-1.0)
[2024-03-03] MEDS ORDERED: PIPERACILLIN/TAZOBACTAM 2.25 GM VIAL IV ONE (19:44)
[2024-03-03 19:45] LABS: CLARITY/URINE SLIGHTLY HAZY (CLEAR)
[2024-03-03 20:09] LABS: BACTERIA,URINE FEW /HPF (None Seen); RBC,URINE NONE SEEN /HPF (0-3)
[2024-03-03 20:10] LABS: MUCUS,URINE 1+ /LPF (None Seen)
[2024-03-03] MEDS: HYDROcodone/ACETAMIN 5-325 MG TAB (NORCO/ VICODIN) PO PRN (20:17)
[2024-03-03] MEDS: NACL 0.9% 1,000 ML IV SCH (20:31)
[2024-03-03] MEDS: PIPERACILLIN/TAZO 2.25G/DEX-IS 50 ML IV SCH (20:32)
[2024-03-03 20:52] VITALS: BP_SYST 106; PULSE 86; RESP 16; TEMP 98.1; O2SAT 98
[2024-03-04] VITALS: BP_SYST 109; PULSE 84; RESP 16; TEMP 98.2; O2SAT 98
[2024-03-04] MEDS: PIPERACILLIN/TAZOBACTAM 2.25 GM VIAL IV ONE (00:37)
[2024-03-04 05:39] LABS: BASOPHILS % (AUTO) 1.6 % (0.0-2.0); EOSINOPHILS # (AUTO) 0.3 K/uL (0.0-0.4); EOSINOPHILS % (AUTO) 25.5 % (0.0-4.0); LYMPHOCYTES # (AUTO) 0.3 K/uL (1.0-5.5); LYMPHOCYTES % (AUTO) 23.7 % (20.5-51.5); MEAN CORPUSCULAR HEMOGLOBIN 31 pg (27-31); MEAN CORPUSCULAR HGB CONC 33 % (32-36); MEAN CORPUSCULAR VOLUME 94 fL (79.0-98.0); MONOCYTES # (AUTO) 0.1 K/uL (0.0-1.0); MONOCYTES % (AUTO) 11.5 % (1.7-9.3); PLATELET COUNT (AUTO) 86 K/uL (130-430)
[2024-03-04 06:29] LABS: ALBUMIN 3.1 g/dL (3.4-4.8); CALCIUM 8.4 mg/dL (8.4-11.0); PHOSPHORUS 3.8 mg/dL (2.7-4.5); POTASSIUM 3.7 mmol/L (3.5-5.1); TOTAL BILIRUBIN 0.5 mg/dL (0.0-1.0)
[2024-03-04 07:06] LABS: HEMATOCRIT 18.6 % (36-48); HEMOGLOBIN 6.1 g/dL (12.0-16.0); NEUTROPHILS # (AUTO) 0.5 K/uL (1.8-7.7); RED BLOOD CELL COUNT(AUTO) 1.98 MIL/uL (4.2-6.2); WHITE BLOOD COUNT (AUTO) 1.2 K/uL (4.8-10.8)
[2024-03-04 07:07] LABS: NEUTROPHILS % (AUTO) 37.7 % (40.0-70.0)
[2024-03-04 08:00] VITALS: BP_SYST 102; PULSE 73; RESP 18; TEMP 97.7; O2SAT 99
[2024-03-04 08:50] VITALS: O2SAT 99
[2024-03-04 12:00] VITALS: BP_SYST 125; PULSE 76; RESP 16; TEMP 97.8; O2SAT 98
[2024-03-04] MEDS ORDERED: FILGRASTIM Non-Formulary 0.48 MG/VIAL SUBCUT SCH (17:00)
[2024-03-04] MEDS: MORPHINE 2 MG/ML INJ. SYRINGE IVP PRN (17:14)
[2024-03-04] MEDS: TBO-FILGRASTIM 300 MCG/0.5 ML SYRINGE SUBCUT SCH (17:32)
[2024-03-04 18:47] LABS: HEMATOCRIT 17.4 % (36-48); HEMOGLOBIN 5.9 g/dL (12.0-16.0)
[2024-03-04] MEDS: ACETAMINOPHEN 325 MG TABLET PO PRN (20:04)
[2024-03-04 20:10] VITALS: BP_SYST 103; PULSE 80; RESP 20; TEMP 99.7; O2SAT 97
[2024-03-05 00:15] VITALS: BP_SYST 95; PULSE 66; RESP 18; TEMP 98.6; O2SAT 97
[2024-03-05 07:43] LABS: TOTAL IRON BIND. CAPACITY 175 ug/dL (250-450)
[2024-03-05 08:00] VITALS: BP_SYST 105; PULSE 65; RESP 17; TEMP 98.6; O2SAT 98
[2024-03-05 12:34] LABS: BASOPHILS % (AUTO) 1.2 % (0.0-2.0); EOSINOPHILS # (AUTO) 0.3 K/uL (0.0-0.4); EOSINOPHILS % (AUTO) 19.9 % (0.0-4.0); LYMPHOCYTES # (AUTO) 0.3 K/uL (1.0-5.5); LYMPHOCYTES % (AUTO) 16.4 % (20.5-51.5); MEAN CORPUSCULAR HEMOGLOBIN 31 pg (27-31); MEAN CORPUSCULAR HGB CONC 33 % (32-36); MEAN CORPUSCULAR VOLUME 94 fL (79.0-98.0); MONOCYTES # (AUTO) 0.2 K/uL (0.0-1.0); NEUTROPHILS % (AUTO) 49.5 % (40.0-70.0); PLATELET COUNT (AUTO) 77 K/uL (130-430); RED CELL DISTRIBUTION WIDTH 16.7 % (9.0-15.0)
[2024-03-05 12:41] VITALS: BP_SYST 104; PULSE 67; RESP 18; TEMP 98.8; O2SAT 98
[2024-03-05 12:43] LABS: NEUTROPHILS # (AUTO) 0.8 K/uL (1.8-7.7)
[2024-03-05 12:46] LABS: HEMATOCRIT 20.7 % (36-48); HEMOGLOBIN 6.8 g/dL (12.0-16.0); WHITE BLOOD COUNT (AUTO) 1.5 K/uL (4.8-10.8)
[2024-03-05 12:48] LABS: ALBUMIN 2.6 g/dL (3.4-4.8); CALCIUM 8.2 mg/dL (8.4-11.0); CREATININE 3.27 mg/dL (0.55-1.30); POTASSIUM 3.9 mmol/L (3.5-5.1); TOTAL BILIRUBIN 0.4 mg/dL (0.0-1.0); TOTAL PROTEIN, SERUM 5.2 g/dL (6.4-8.3)
[2024-03-05] MEDS: FOLIC ACID 1 MG TABLET PO ONE (13:59)
[2024-03-05] MEDS: SOD FERRIC GLUC COMPLEX/SUC 125 MG in NS 100 ML IV SCH (14:47)
[2024-03-05 16:09] VITALS: BP_SYST 106; PULSE 66; RESP 17; TEMP 98.7; O2SAT 98
[2024-03-05 19:42] VITALS: BP_SYST 105; PULSE 75; RESP 20; TEMP 96.9; O2SAT 100
[2024-03-05] MEDS: CALCIUM CARBONATE/VITAMIN D3 1 TAB TABLET PO SCH (22:03)
[2024-03-06] VITALS (7 sets, daily range): BP systolic 97–128; PULSE 54–70; RESP 16–20; TEMP 96.8–98; O2SAT 97–99
[2024-03-06 07:46] LABS: EOSINOPHILS # (AUTO) 0.4 K/uL (0.0-0.4); EOSINOPHILS % (AUTO) 12.6 % (0.0-4.0); HEMATOCRIT 23.3 % (36-48); HEMOGLOBIN 7.9 g/dL (12.0-16.0); LYMPHOCYTES # (AUTO) 0.5 K/uL (1.0-5.5); MEAN CORPUSCULAR HEMOGLOBIN 31 pg (27-31); MEAN CORPUSCULAR HGB CONC 34 % (32-36); MEAN CORPUSCULAR VOLUME 90 fL (79.0-98.0); MONOCYTES # (AUTO) 0.4 K/uL (0.0-1.0); MONOCYTES % (AUTO) 10.7 % (1.7-9.3); NEUTROPHILS % (AUTO) 60.7 % (40.0-70.0); PLATELET COUNT (AUTO) 81 K/uL (130-430); RED BLOOD CELL COUNT(AUTO) 2.58 MIL/uL (4.2-6.2); RED CELL DISTRIBUTION WIDTH 16.6 % (9.0-15.0); WHITE BLOOD COUNT (AUTO) 3.3 K/uL (4.8-10.8)
[2024-03-06 08:01] LABS: ALBUMIN 2.5 g/dL (3.4-4.8); CALCIUM 8.2 mg/dL (8.4-11.0); CREATININE 3.02 mg/dL (0.55-1.30); PHOSPHORUS 3.2 mg/dL (2.7-4.5); POTASSIUM 3.6 mmol/L (3.5-5.1); TOTAL BILIRUBIN 0.5 mg/dL (0.0-1.0); TOTAL PROTEIN, SERUM 5.2 g/dL (6.4-8.3)
[2024-03-06] MEDS: FOLIC ACID 1 MG TABLET PO SCH (08:59)
[2024-03-06 12:42] LABS: HEMATOCRIT 26.2 % (36-48)
[2024-03-07 00:19] VITALS: BP_SYST 114; PULSE 62; RESP 16; TEMP 97; O2SAT 94
[2024-03-07 06:32] LABS: BASOPHILS # (AUTO) 0.1 K/uL (0.0-0.2); BASOPHILS % (AUTO) 1.3 % (0.0-2.0); EOSINOPHILS # (AUTO) 0.5 K/uL (0.0-0.4); EOSINOPHILS % (AUTO) 12.3 % (0.0-4.0); HEMOGLOBIN 8.6 g/dL (12.0-16.0); LYMPHOCYTES # (AUTO) 0.6 K/uL (1.0-5.5); LYMPHOCYTES % (AUTO) 13.7 % (20.5-51.5); MEAN CORPUSCULAR HEMOGLOBIN 31 pg (27-31); MEAN CORPUSCULAR HGB CONC 34 % (32-36); MEAN CORPUSCULAR VOLUME 91 fL (79.0-98.0); MONOCYTES # (AUTO) 0.5 K/uL (0.0-1.0); MONOCYTES % (AUTO) 11.6 % (1.7-9.3); NEUTROPHILS # (AUTO) 2.7 K/uL (1.8-7.7); NEUTROPHILS % (AUTO) 61.1 % (40.0-70.0); PLATELET COUNT (AUTO) 83 K/uL (130-430); RED BLOOD CELL COUNT(AUTO) 2.76 MIL/uL (4.2-6.2); RED CELL DISTRIBUTION WIDTH 16.7 % (9.0-15.0); WHITE BLOOD COUNT (AUTO) 4.5 K/uL (4.8-10.8)
[2024-03-07 06:56] LABS: ALBUMIN 2.8 g/dL (3.4-4.8); CALCIUM 8.8 mg/dL (8.4-11.0); CREATININE 3.07 mg/dL (0.55-1.30); PHOSPHORUS 3.2 mg/dL (2.7-4.5); POTASSIUM 3.4 mmol/L (3.5-5.1); TOTAL BILIRUBIN 0.4 mg/dL (0.0-1.0); TOTAL PROTEIN, SERUM 5.7 g/dL (6.4-8.3)
[2024-03-07 08:00] VITALS: BP_SYST 127; PULSE 51; RESP 16; TEMP 98.6; O2SAT 98
[2024-03-07] MEDS: EPOETIN ALFA-EPBX 3,000 UNITS/ML VIAL SUBCUT SCH (09:55)
[2024-03-07] MEDS ORDERED: EPOETIN ALFA-EPBX 3,000 UNITS/ML VIAL SUBCUT SCH ×2 (10:36→17:00)
[2024-03-07 11:06] VITALS: BP_SYST 139; PULSE 54; RESP 16; TEMP 98.2; O2SAT 99
[2024-03-07] MEDS ORDERED: AUG875 PO (11:17)
[2024-03-07] MEDS: KCL 20 mEq in 100 mL (PREMIX) 100 ML IV ONE (12:11)
[2024-03-07] MEDS ORDERED: ACYC400T19 PO (14:03)
[2024-03-07 14:26] VITALS: BP_SYST 141; PULSE 69; RESP 16; TEMP 97.6; O2SAT 98
[2024-03-07 16:14] VITALS: BP_SYST 137; PULSE 56; RESP 16; TEMP 98.1; O2SAT 98
== END 2024-03-07 16:05 | disposition home or self-care (01) | DRG 691 ==
LOC: SED 13:55 → STU 17:01
PROVIDERS: ADMIT Student in an Organized Health Care Education/Training Program; ATTEND Student in an Organized Health Care Education/Training Program
PROC: 30233N1 Transfusion of Nonautologous Red Blood Cells into Peripheral Vein, Percutaneous Approach (ICD-10-PCS; principal; 2024-03-04)
DX: C90.00 Multiple myeloma not having achieved remission (principal); D61.818 Other pancytopenia; E43 Unspecified severe protein-calorie malnutrition; N18.4 Chronic kidney disease, stage 4 (severe); D70.9 Neutropenia, unspecified; M48.54XA Collapsed vertebra, not elsewhere classified, thoracic region, initial encounter for fracture; D63.0 Anemia in neoplastic disease; K44.9 Diaphragmatic hernia without obstruction or gangrene; E56.8 Deficiency of other vitamins; E87.6 Hypokalemia; M89.9 Disorder of bone, unspecified; J98.11 Atelectasis; Z68.25 Body mass index [BMI] 25.0-25.9, adult; Z08 Encounter for follow-up examination after completed treatment for malignant neoplasm
CPT/HCPCS: 36415; 71045; 71250-TC; 72080; 80048; 80053; 80076; 81000; 81001; 81015; 83540; 83550; 83605; 83615; 83690; 83735; 83880; 84100; 84484; 85007; 85018; 85025; 85027; 85044; 85610; 85730; 86870; 86886; 86900; 86901; 86905; 86920; 87040; 93005; 97530-GP; 99285; G0378; J0692; J1447; J2270; J2543; J2916; J3480; J7030; J7050; J7060; P9021; Q5106